=== PATIENT | female | born 1940 | race Caucasian/White ===

== ENCOUNTER 2021-03-12 21:59 | Inpatient (IN) | payer MEDICARE, SELFPAY ==
--- NOTE | 2021-03-12 00:08 | RAD_ITS ---
HISTORY: Trauma, fall EXAMINATION/TECHNIQUE: XR Chest 1 View: Portable supine AP chest x-ray COMPARISON: None FINDINGS: LINES/DEVICES: None. LUNGS: Hazy bilateral airspace opacities without consolidation or vascular congestion. No pneumothorax. MEDIASTINUM AND CARDIOVASCULAR STRUCTURES: Cardiac silhouette not enlarged. BONES AND SOFT TISSUES: No acute bony abnormalities. RAD/Chest 1 View (Portable) IMPRESSION: Hazy bilateral airspace disease of uncertain chronicity, suspicious for pneumonia in the appropriate clinical setting. Recommend two-view chest x-ray follow-up. at 0034 Reported and signed by: Gian Johns MD Electronically Signed: Gian Johns MD at 0:33 EST Tel , Service support ,
[2021-03-12 22:02] VITALS: BP 159/83; PULSE 80; RESP 18; TEMP 36.7; O2SAT 96; BMI 26.2
--- NOTE | 2021-03-12 22:21 | RAD_ITS ---
HISTORY: Trauma, fall, hip pain EXAMINATION/TECHNIQUE: XR Hip Unilateral with Pelvis when performed; 2-3 Views: COMPARISON: None FINDINGS: BONES/JOINTS: Comminuted fracture of the right intertrochanteric femur. Preservation of the hip joint spaces. No sclerotic or destructive changes observed. SOFT TISSUES: No soft tissue swelling or gas. No radiopaque foreign body. RAD/HIP, UNI W/ Pelvis 2-3 Views IMPRESSION: Comminuted intertrochanteric fracture right femur. at 0036 Reported and signed by: Gian Johns MD Electronically Signed: Gian Johns MD at 0:34 EST Tel , Service support ,
--- NOTE | 2021-03-12 22:21 | CT_ITS ---
HISTORY: Trauma, head injury TECHNIQUE: Multiple axial images were obtained of the brain without intravenous contrast. A radiation dose optimization technique was used for this scan. IV Contrast dosage and agent: None. COMPARISON: None FINDINGS: # of images incl. paperwork: [phone] PARANASAL SINUSES AND MASTOID AIR CELLS: Ethmoid and maxillary mucoperiosteal thickening. INTRACRANIAL HEMORRHAGE: None. BRAIN PARENCHYMA: No CT evidence of stroke. No intracranial masses. There is preservation of the orozco/white matter interface. Posterior fossa structures are unremarkable. There is hypoattenuation of the periventricular white matter. Chronic involutional changes are noted. CSF SPACES: Appropriate for age. There is no hydrocephalus. MASS EFFECT: None. CALVARIUM: No acute fracture. CT/Brain/Head without Contrast IMPRESSION: Chronic involutional and white matter changes. No acute intracranial process. Individualized dose optimization techniques were used for this CT. at 0025 Reported and signed by: Gian Johns MD Electronically Signed: Gian Johns MD at 0:24 EST Tel , Service support ,
--- NOTE | 2021-03-12 22:21 | EKG12_ITS ---
Test Reason : DYSRHYTHMIA Blood Pressure : / mmHG Vent. Rate : 085 BPM Atrial Rate : 085 BPM P-R Int : 160 ms QRS Dur : 072 ms QT Int : 360 ms P-R-T Axes : 089 003 048 degrees QTc Int : 428 ms Sinus rhythm with Premature atrial complexes Otherwise normal ECG Confirmed by KATALINA LOPEZ, NORMA ([id number]), editor department LEDY CARRILLO ([id number]) on 03/15/2021 1:21:18 PM Referred By: JERO Confirmed By:NORMA DARDEN MD
--- NOTE | 2021-03-12 22:40 | EDS_ITS ---
HPI History of Present Illness Chief Complaint: Fall Narrative Narrative: Patient is an 80-year-old female who lives with her son and has dementia. This evening around 9 PM she got up to turn off the TV and the light and get ready for bed when she lost her balance and fell. Son states he heard the thud and ran upstairs to her side within 10 to 15 seconds. He states when he arrived she was awake and alert and at her baseline mental status. Patient and son deny any blood thinner use. Patient states she has pain in her right hip and cannot ambulate or bear weight because of this and as her pain was not improving with just time and [id number] medication son brought her in for evaluation. PFSH PFS Home Medications multivitamin 1 tab PO DAILY 03/12/21 [History Last Taken Unknown] Allergy/AdvReac Type Severity Reaction Status Date / Time bee venom protein (honey bee) Allergy Hives Verified 03/12/21 22:07 Penicillins Allergy Hives Verified 03/12/21 22:07 Surgical History (Updated 03/12/21 @ 22:12 by Lala Queen) Hx of cholecystectomy Hx of hysterectomy Social History Smoking Status: Former smoker ROS ROS ED Constitutional Constitutional ED: Denies chills or fever(s) Eyes Eyes: Denies change in vision ENT ENT ED: Denies sore throat Cardiovascular Cardiovascular: Denies chest pain Respiratory/Chest Respiratory/Chest: Denies cough or dyspnea Gastrointestinal Gastrointestinal: Denies abdominal pain, diarrhea, nausea or vomiting Genitourinary Genitourinary ED: Denies dysuria Musculoskeletal Musculoskeletal: Reports other Details: Positive right hip pain ; Denies back pain, myalgias or neck pain Integumentary Denies rash Neurologic Neurologic: Denies headache(s) Hematologic/Lymphatic Hematologic/Lymphatic: Denies easy bleeding or easy bruising EXAM Physical Exam Const Vital Signs: 03/12/21 22:02 03/12/21 22:13 03/13/21 00:30 Temperature 98.1 F Temperature Source Oral Pulse Rate 80 78 Respiratory Rate 18 18 Respiratory Effort Normal Non-Labored Respiratory Depth Normal Respiratory Pattern Normal Blood Pressure 159/83 H 163/75 H Blood Pressure Mean 108 104 Pulse Ox 96 98 Oxygen Delivery Method Room Air Nasal Cannula Oxygen Flow Rate (L/min) 2 Positive well nourished and well developed General Appearance ED: well developed HEENT Reports moist mucous membranes HEENT Narrative: Patient has a small 1 x 2 cm hematoma to the right occipital/parietal portion of the scalp without signs of depressed or basilar skull fracture Eyes PERRL and EOMs intact bilaterally Neck supple Neck Narrative: No bony deformity or step-off of the cervical spine no midline pain with palpation Chest Wall palpation of chest normal Resp normal respiratory effort and clear to auscultation bilaterally Cardio regular rate and regular rhythm Rate: other Other Details: Radial pulses are plus 2 out of 4 bilaterally they are equal and symmetric GI normal to inspection, nondistended, normoactive bowel sounds, non-tender, non- distended and no masses GI Narrative: No voluntary guarding or rigidity no pulsatile mass Auscultation: normoactive bowel sounds Palpation: soft Extremity Extremity Narrative: Pelvis is stable but the right leg is shortened and externally rotated compared to the left. There is soft tissue swelling of the proximal anterior right thigh with pain on palpation over the site concerning for proximal femur or femoral neck fracture. Active and passive range of motion is severely limited secondary to pain. Neuro CN's II-XII intact bilaterally Neuro Narrative: Patient is awake alert at her baseline mental status with no focal neurologic deficits Sensorium / Orientation: alert Psych mental status grossly normal Skin no rashes or lesions noted Skin Narrative: Soft tissue swelling to the right anterior thigh as documented above without ecchymosis MDM MDM MDM Narrative Medical decision making narrative: Patient had a mechanical fall so there is no need for a cardiac or syncope work-up. However her exam is consistent with a femoral neck fracture so a medical screening exam with basic work-up was obtained. Head CT was also added secondary to the signs of head trauma on exam. Head CT revealed no acute intracranial pathology. Patient's Covid test was positive consistent with her leukopenia and chest x-ray showed inflammatory changes consistent with Covid pneumonia. Secondary to this she was started on Decadron. Her urine also showed signs of UTI so it was sent for culture and she was placed on Rocephin. The case was discussed with orthopedic. Initially they recommended transfer to a higher level of care but multiple facilities were contacted and have no beds available for transfer. Therefore orthopedics was contacted once again and with this development we will keep the patient in our facility. Based on her medical comorbidities and the likelihood that she will not do well because of her Covid and unvaccinated status she will be admitted to medicine service. Lab Data Attestation: I reviewed the patient's lab results. Labs: Laboratory Results - last 24 hr 03/12/21 03/12/21 03/12/21 23:20 23:20 23:20 WBC 2.1 L RBC 3.26 L Hgb 9.8 L Hct 30.6 L MCV 93.9 MCH 30.1 MCHC 32.0 RDW Std Deviation 52.1 H RDW Coeff of Jenny 15.2 H Plt Count 89 L MPV 10.9 Immature Gran % (Auto) 1.000 H Neut % (Auto) 51.6 Lymph % (Auto) 29.2 [place] % (Auto) 17.7 H Eos % (Auto) 0.0 Baso % (Auto) 0.5 Absolute Neuts (auto) 1.1 L Absolute Lymphs (auto) 0.61 L Nucleated RBC % 0 Platelet Estimate MOD DEC PT 14.7 INR 1.2 APTT 44.6 H Sodium 137 Potassium 3.9 Chloride 108 H Carbon Dioxide 24.0 Anion Gap 5 BUN 30 H Creatinine 1.54 H Estim Creat Clear Calc 26.37 Est GFR (MDRD) Af Amer 41 L Est GFR (MDRD) Non-Af 34 L BUN/Creatinine Ratio 19.5 Glucose 123 H Calcium 7.7 L Urine Color Urine Clarity Urine pH Ur Specific [place] Urine Protein Urine Glucose (UA) Urine Ketones Urine Occult Blood Urine Nitrite Urine Bilirubin Urine Urobilinogen Ur Leukocyte Esterase Urine RBC Urine WBC Ur Squamous Epith Cells Ur Renal Epithelial Cell Urine Bacteria Coarse Granular Casts Urine Mucus 03/12/21 23:20 WBC RBC Hgb Hct MCV MCH MCHC RDW Std Deviation RDW Coeff of Jenny Plt Count MPV Immature Gran % (Auto) Neut % (Auto) Lymph % (Auto) [place] % (Auto) Eos % (Auto) Baso % (Auto) Absolute Neuts (auto) Absolute Lymphs (auto) Nucleated RBC % Platelet Estimate PT INR APTT Sodium Potassium Chloride Carbon Dioxide Anion Gap BUN Creatinine Estim Creat Clear Calc Est GFR (MDRD) Af Amer Est GFR (MDRD) Non-Af BUN/Creatinine Ratio Glucose Calcium Urine Color Yellow Urine Clarity Sl. Cloudy Urine pH 6.0 Ur Specific [place] 1.020 Urine Protein 100 H Urine Glucose (UA) Normal Urine Ketones Negative Urine Occult Blood 250 H Urine Nitrite Positive H Urine Bilirubin Negative Urine Urobilinogen Normal Ur Leukocyte Esterase 500 H Urine RBC 5-10 SEEN Urine WBC >100 SEEN Ur Squamous Epith Cells 0-5 SEEN Ur Renal Epithelial Cell 0-5 SEEN Urine Bacteria 4+ Coarse Granular Casts 5-10 SEEN Urine Mucus 0 SEEN Radiography Diagnostic Testing: Clinical Impression(s) from Imaging Studies Chest X-Ray 03/12/21 00:08 IMPRESSION: Hazy bilateral airspace disease of uncertain chronicity, suspicious for pneumonia in the appropriate clinical setting. Recommend two-view chest x-ray follow-up. at 0034 Reported and signed by: Gian Johns MD Electronically Signed: Gian Johns MD at 0:33 EST Tel , Service support , Brain CT 03/12/21 22:21 IMPRESSION: Chronic involutional and white matter changes. No acute intracranial process. Individualized dose optimization techniques were used for this CT. at 0025 Reported and signed by: Gian Johns MD Electronically Signed: Gian Johns MD at 0:24 EST Tel , Service support , Hip/Pelvis X-Ray 03/12/21 22:21 IMPRESSION: Comminuted intertrochanteric fracture right femur. at 0036 Reported and signed by: Gian Johns MD Electronically Signed: Gian Johns MD at 0:34 EST Tel , Service support , Discharge Plan Dx/Rx/DC Orders Clinical Impression: Closed intertrochanteric fracture of femur, Pneumonia due to 2019 novel coronavirus, Urinary tract infection Disposition Disposition: Acute Care [facility]
[2021-03-12] MEDS: 0.9% Normal Saline 1,000 ML 125 ML IV (22:49)
[2021-03-12] MEDS: Ondansetron 4 MG/2 ML Vial IV ×2 (22:50→23:55)
[2021-03-12] MEDS: Morphine 4 MG/ML Syringe IV (22:51)
[2021-03-12 23:27] LABS: Mucous, Urine 0 SEEN /hpf (<or=2+)
[2021-03-12 23:30] LABS: Absolute Lymphocyte Count 0.61 X10^3/uL (0.83-4.51); Absolute Neutrophil Count 1.1 X10^3/uL (2.0-7.7); Basophil# 0.01 X10^3/uL; Basophil% 0.5 % (0-1); Hematocrit 30.6 % (37-47); Hemoglobin 9.8 g/dL (12.0-15.0); Lymphocyte # 0.61 X10^3/ul (0.83-4.51); Lymphocyte % 29.2 % (19-41); Mean Corpuscular Hgb 30.1 pg (27.0-32.0); Mean Corpuscular Volume 93.9 fL (81-99); Mean Platelet Vol. 10.9 fl (6.2-12.0); Monocyte# 0.37 X10^3/uL; Monocyte% 17.7 % (0-10); NRBC Flagged by Analyzer 0 % (0-5); Neutrophil # 1.08 X10^3/uL (2.7-7.7); Neutrophil % 51.6 % (47-70); POSITIVE COUNT YES; Platelet Count 89 K/mm3 (150-450); RBC Distribution Width CV 15.2 % (11.6-14.6); RBC Distribution Width SD 52.1 fl (35.1-43.9); Red Blood Count 3.26 M/mm3 (4.2-5.4); White Blood Count 2.1 K/mm3 (4.4-11.0)
[2021-03-12 23:31] LABS: Color, Urine Yellow (Yellow); Glucose, Dipstick Normal (Normal); Ketone-Dipstick Negative (Negative); Leukocyte Esterase-Dipstick 500 /ul (Negative); Nitrite-Dipstick Positive (Negative); Occult Blood-Urine 250 /ul (Negative); Protein-Dipstick 100 mg/dl (Negative); Urine Bilirubin Dipstick Negative (Negative); Urine Clarity Sl. Cloudy (Clear); Urine Urobilinogen Normal (Normal)
[2021-03-12 23:32] LABS: Differential Indicated SCAN CRITERIA MET
[2021-03-12 23:52] LABS: Anion Gap 5 (5-15); BUN 30 mg/dL (7-18); BUN/Creat Ratio 19.5 RATIO (10-20); Calcium,Total 7.7 mg/dL (8.5-10.1); Chloride 108 mmol/L (98-107); Creatinine, Serum 1.54 mg/dL (0.55-1.02); EST Glomerular Filtration Rate 34 mL/min (>60); Est Glom Filt Rate - Afr Amer 41 mL/min (>60); Estimated Creatinine Clearance 26.37 ml/min; Glucose 123 mg/dL (74-106); Potassium 3.9 mmol/L (3.5-5.1); Sodium Level 137 mmol/L (136-145)
[2021-03-12] MEDS: fentaNYL 100 MCG/2 ML Ampul 25 MCG IV (23:58)
[2021-03-13] VITALS (12 sets, daily range): BP systolic 111–163; BP diastolic 51–87; PULSE 54–83; RESP 12–18; TEMP 35.8–37; O2SAT 96–100; BMI 24.7
[2021-03-13 00:12] LABS: Bacteria 4+ /hpf (None Seen)
[2021-03-13 00:13] LABS: Red Blood Cells-Urine 5-10 SEEN /hpf (0-5); Renal Epithelial Cells 0-5 SEEN /hpf (0-5); Squamous Epithelial Cells - UA 0-5 SEEN /hpf (5-10); White Blood Cells >100 SEEN /hpf (0-5)
[2021-03-13 00:14] LABS: Coarse Granular Cast 5-10 SEEN /lpf (0-5 /lpf)
[2021-03-13 00:22] LABS: International Normalized Ratio 1.2; Prothrombin Time (Protime)PT. 14.7 SECONDS (11.7-14.9)
[2021-03-13 00:23] LABS: Partial Thromboplast Time 44.6 Seconds (24.1-36.2)
[2021-03-13 00:31] LABS: Platelet Estimate MOD DEC (ADEQ)
[2021-03-13] MEDS: dexAMETHasone 10 MG/ML Vial IV (00:38)
[2021-03-13] MEDS: Ceftriaxone 1 GM/50 ML BAG IV ×2 (00:38→20:50)
--- NOTE | 2021-03-13 01:39 | ED.RN ---
CALLED AROUND TO HOSPITALS ABOUT THIS PATIENT FOR A TRANSFER, [facility], [facility], [facility] AND [facility] ALL SAID NO DUE TO NO BEDS.
--- NOTE | 2021-03-13 01:50 | PCM.HP.STD ---
HPI - General General Date of Admission: 03/13/21 Date of Service: 03/13/21 Chief Complaint: COVID sxs, Fall w/ R hip pain. HPI Narrative The patient is an 80 y/o F w/ PMHx: Former Tobacco use, Dementia unclear type with unclear behavioral disturbance history who presents to the [facility] ED on 03/13/21 with history of unfortunate mechanical fall onto her right hip with significant discomfort following, shortening and abnormal rotation with no specific loss of consciousness prompting ED evaluation. Patient lives with her son and per discussion was getting up approximately 9 PM to turn off the TV and the light to get ready for bed when she lost her balance and fell at that time. Patient reported that her mental status was stable and unchanged from her baseline with notable underlying significant dementia. Patient has not been vaccinated against COVID. Patient son did state that unfortunately his son recently tested positive for Covid and that both him and his mother had Covid testing on day of ED presentation but have yet to have these results and that they both been fatigued with upper respiratory type symptoms over the last 1 to 2 days. Work-up in the ED included T 98.1, heart rate 80, BP 159/83, respiratory rate 18, 96% on room air; however, following morphine dropped to 88% on RA-->improved with NC but upon hospitalist evaluation was 91% on room air and this was a decent timeline out from narcotic therapies, CBC with WBC 2.1, hemoglobin 9.8, platelet 89 with increased immature granulocytes although absolute neutrophils 1.1 with concurrent lymphopenia, BMP with chloride 108, BUN/creatinine 30/1.54, glucose 123, coags with PTT 44.6 otherwise unremarkable, urinalysis with specific gravity elevation 1.020, occult blood 250, positive nitrite, leukocyte esterase 500, urine RBC 5-10, urine WBCs greater than 100 with 4+ urine bacteria, urine culture pending per ED, rapid Covid antigen positive, plain film of the hip and pelvis with R comminuted intertrochanteric fracture, chest x-ray w/ hazy bilateral airspace disease of uncertain chronicity, suspicious for pneumonia in the appropriate clinical setting, CT brain with chronic involutional and white matter changes with no acute intracranial findings. In the ED patient ministered normal saline, Rocephin, fentanyl, morphine and Zofran therapy. Mathew catheter placed in the ED. [facility] Medical History (Updated 03/13/21 @ 01:[address] Mary Carmen Bell MD) Anemia CKD (chronic kidney disease) Former tobacco use Severe dementia Home Medications multivitamin 1 tab PO DAILY 03/12/21 [History Last Taken Unknown] Allergy/AdvReac Type Severity Reaction Status Date / Time bee venom protein (honey bee) Allergy Hives Verified 03/12/21 22:07 Penicillins Allergy Hives Verified 03/12/21 22:07 unable to obtain (Unknown maternal and paternal family history per discussion with patient son, all passed when he was young.) Surgical History (Updated 03/13/21 @ 01:[address] Mary Carmen Bell MD) Hx of cholecystectomy Hx of hysterectomy S/P bilateral foot surgery Social History (Updated 03/13/21 @ 01:[address] Mary Carmen Bell MD) household members: other details: Patient moved in with her son ~ 15 years prior following her . Smoking Status: Former smoker how long ago did patient quit smoking: Smoked x 30 years, quit ~ 15 years ago. alcohol intake: never substance use type: does not use ROS ROS Narrative Admission Review of Systems: ROS given per family: CONSTITUTIONAL: No weight loss, fever, chills, + weakness or fatigue. HEENT: + Rhinorrhea, congestion, headache. Eyes: No visual loss, blurred vision, double vision or yellow sclerae. Ears, Nose, Throat: No hearing loss, sneezing. SKIN: No rash or itching, lesions, wounds. CARDIOVASCULAR: No chest pain, chest pressure or chest discomfort, palpitations, edema, orthopnea, syncopal events. RESPIRATORY: + Mild cough. No shortness of breath, marked sputum, wheezing, hemoptysis. GASTROINTESTINAL: + anorexia, nausea, vomiting, No diarrhea, No abdominal pain, melena, BRBPR. GENITOURINARY: No dysuria, frequency, urgency or retention. NEUROLOGICAL: + Fall, No specifically reported dizziness, headache, syncope, paralysis, ataxia, numbness or tingling in the extremities, focal weakness, change in bowel or bladder control, seizure. MUSCULOSKELETAL: + muscle, back pain, joint pain or stiffness. HEMATOLOGIC: + anemia, bleeding or bruising. LYMPHATICS: No enlarged nodes. No history of splenectomy. PSYCHIATRIC: No history of depression or anxiety. ENDOCRINOLOGIC: No reports of sweating, cold or heat intolerance. No polyuria or polydipsia. ALLERGIES: No history of asthma, hives, eczema or rhinitis. Vital Signs Vital Signs Vital Signs: 03/12/21 22:02 03/12/21 22:13 03/13/21 00:30 Temperature 98.1 F Temperature Source Oral Pulse Rate 80 78 Respiratory Rate 18 18 Respiratory Effort Normal Non-Labored Respiratory Depth Normal Respiratory Pattern Normal Blood Pressure 159/83 H 163/75 H Blood Pressure Mean 108 104 Pulse Ox 96 98 Oxygen Delivery Method Room Air Nasal Cannula Oxygen Flow Rate (L/min) 2 Weight Weight: 162 lb 11.218 oz Body Mass Index (BMI) 26.2 Physical Exam Narrative Physical Examination: General: Awake, alert, oriented to self and recent events including recent fall however significant severe underlying dementia, remains cooperative, seated upright in the ED bed with unfortunate recent bouts of nausea and vomiting, fatigued appearing, no acute distress. Skin: Normal color, normal turgor, no icterus, no cyanosis except notable right occipital/parietal scalp hematoma. HEENT: AT/NC, EOMI, PERRLA, moderately dry MM, no carotid bruits or JVD noted. Lungs: Diminished, greater bases, no evidence of any respiratory distress, no rales, ronchi or wheezing. Heart: Regular rate with regular rhythm; no gallop, rub audible. Abdomen: Soft, NTTP, no obvious distention, distant bowel sounds, no obvious HSM. Extremities: No cyanosis, no clubbing, status post mechanical fall with right lower extremity shortened and externally rotated with soft tissue swelling. Neurological: Patient awake, alert, oriented as noted, cognitive function appears baseline intact per family report with significant severe underlying dementia, pleasant; cranial nerves II-XII grossly normal, moving all 4 extremities except specifically limited movement right lower extremity given fall with hip fracture, strength accordingly severely global decrease secondary to acute presentation. Psychiatric: Affect appears fatigued, uncomfortable, no acute evidence of depressive or anxiety feelings. Results Lab / Micro Data Result Diagrams: 03/12/21 23:20 03/12/21 23:20 Labs: Laboratory Results - last 24 hr 03/12/21 23:20: WBC 2.1 L, RBC 3.26 L, Hgb 9.8 L, Hct 30.6 L, MCV 93.9, MCH 30.1, MCHC 32.0, RDW Std Deviation 52.1 H, RDW Coeff of Jenny 15.2 H, Plt Count 89 L, MPV 10.9, Immature Gran % (Auto) 1.000 H, Neut % (Auto) 51.6, Lymph % (Auto) 29.2, [place] % (Auto) 17.7 H, Eos % (Auto) 0.0, Baso % (Auto) 0.5, Absolute Neuts (auto) 1.1 L, Absolute Lymphs (auto) 0.61 L, Nucleated RBC % 0, Platelet Estimate MOD 03/12/21 23:20: PT 14.7, INR 1.2, APTT 44.6 H 03/12/21 23:20: Sodium 137, Potassium 3.9, Chloride 108 H, Carbon Dioxide 24.0, Anion Gap 5, BUN 30 H, Creatinine 1.54 H, Estim Creat Clear Calc 26.37, Est GFR (MDRD) Af Amer 41 L, Est GFR (MDRD) Non-Af 34 L, BUN/Creatinine Ratio 19.5, Glucose 123 H, Calcium 7.7 L 03/12/21 23:20: Urine Color Yellow, Urine Clarity Sl. Cloudy, Urine pH 6.0, Ur Specific [place] 1.020, Urine Protein 100 H, Urine Glucose (UA) Normal, Urine Ketones Negative, Urine Occult Blood 250 H, Urine Nitrite Positive H, Urine Bilirubin Negative, Urine Urobilinogen Normal, Ur Leukocyte Esterase 500 H, Urine RBC 5-10 SEEN, Urine WBC >100 SEEN, Ur Squamous Epith Cells 0-5 SEEN, Ur Renal Epithelial Cell 0-5 SEEN, Urine Bacteria 4+, Coarse Granular Casts 5-10 SEEN, Urine Mucus 0 SEEN Micro: Microbiology 03/12/21 22:40 Nasal Secretion SARS-CoV-2 Antigen (Rapid) - Final SARS-CoV-2 (COVID 19) Radiology Impression Chest X-Ray 03/12/21 00:08 IMPRESSION: Hazy bilateral airspace disease of uncertain chronicity, suspicious for pneumonia in the appropriate clinical setting. Recommend two-view chest x-ray follow-up. at 0034 Reported and signed by: Gian Johns MD Electronically Signed: Gian Johns MD at 0:33 EST Tel , Service support , Brain CT 03/12/21 22:21 IMPRESSION: Chronic involutional and white matter changes. No acute intracranial process. Individualized dose optimization techniques were used for this CT. at 0025 Reported and signed by: Gian Johns MD Electronically Signed: Gian Johns MD at 0:24 EST Tel , Service support , Hip/Pelvis X-Ray 03/12/21 22:21 IMPRESSION: Comminuted intertrochanteric fracture right femur. at 0036 Reported and signed by: Gian Johns MD Electronically Signed: Gian Johns MD at 0:34 EST Tel , Service support , Assessment & Plan Assessment/Plan (1) Closed intertrochanteric fracture of femur: QUALIFIERS: Encounter type: initial encounter Laterality: right Fracture alignment: nondisplaced Qualified Code(s): S72.144A - Nondisplaced intertrochanteric fracture of right femur, initial encounter for closed fracture (2) Pneumonia due to 2019 novel coronavirus: (3) Urinary tract infection: QUALIFIERS: Urinary tract infection type: acute cystitis Hematuria presence: without hematuria Qualified Code(s): N30.00 - Acute cystitis without hematuria PLAN: The patient is an 80 y/o F w/ PMHx: Former Tobacco use, Dementia unclear type with unclear behavioral disturbance history who presents to the [facility] ED on 03/13/21 with history of unfortunate mechanical fall onto her right hip with significant discomfort following, shortening and abnormal rotation with no specific loss of consciousness prompting ED evaluation. 1. Acute Bilateral Pneumonia secondary to Acute Viral Syndrome, COVID-19 w/ Acute Hypoxia: Will admit to the medical surgical floor, maintain on COVID precautions, will maintain on oxygen with wean as tolerated to room air, PRN albuterol, HOB, IS parameters w/ pending sputum cultures, respiratory viral panel and urine antigens, will obtain D-dimer, procalcitonin, CRP, CPK, Ferritin, LDH, trop and BNP, continue supportive care including q 2 hour turning including prone given no prone bed availability and judicious hydration, closely monitor for worsening status for ARDS and multiorgan failure, given hypoxia in the ED although could certainly be pain medication associated will continue IV decadron, given CrCl will hold remdesivir usage. Certainly does complicate presentation with hip fracture concurrently. 2. Acute Urinary Tract Infection: UA upon ED evaluation remarkable, pending UCx, continue judicious IVFs given acute presentation as noted #1, monitor I/Os, continue IV Rocephin w/ transition as able pending sensitivities and speciation. 3. General debility, R hip pain s/p mechanical fall w/ R intertrochanteric hip fracture: Orthopedic surgery consulted from ED. Will maintain NPO after midnight pending their evaluation but noted surgery may be delayed until Monday, continue gentle IVFs especially given #1, obtain TSH, Mag level, ICa, continue treatment of urinary tract potential infection as noted, mathew placement, monitor I/Os, frequent positioning, fall precautions, pain, anti-emetic regimen. PT/OT/CM involvement. Per NSQIP patient risk is below average; however, this is falsely lower has she likely has significant underlying comorbidities that have not been treated including evident pancytopenia with suspected chronic anemia, possibly underlying chronic kidney disease and possibly untreated high blood pressure however it is unclear if this is associated with acute presentation with pain. Patient is extremely high risk given her Covid positive status with BL PNA and hypoxia in unvaccinated state which was discussed at length with family the likelihood of a poor outcome including her likely to which they understand and are amenable to her proceeding to the OR primarily for pain control with suspected likely pinning. 4. Elevated BP without hypertensive diagnosis: Patient BP upon ED presentation elevated, likely secondary to acute presentation #1, #2 neck, #3 however be cautious we will continue monitor and in the interim IV as needed hydralazine. 5. Acute kidney injury versus CKD stage III, unclear subtype: Admission BUN/Cr 30/1.54, unclear baseline, potentially chronic kidney disease versus mild renal insufficiency versus acute kidney injury, as noted above will judiciously hydrate given presentation, avoid nephrotoxic regimen and repeat CMP in AM. 6. Pancytopenia, unclear if chronic, unclear if acute on chronic component: Potentially related with acute presentation #1 COVID-19, admission CBC with WC 2.1, hemoglobin 9.8 with MCV 93.9, platelet 89, will need to cautiously use chemoprophylaxis following surgery evaluation given these findings, no comparison, will obtain iron panel, ferritin, vitamin B12 and folic acid. 7. Dementia, unclear type with unclear behavioral disturbance history: Complicates presentation especially given the myriad of acute presentations, maintain on fall precautions, therapies once intervention for hip performed will need to be consulted as well as case management for discharge planning as would require likely skilled placement. 8. Former tobacco use: Encourage continued tobacco cessation. 9. DVT prophylaxis: SCDs, hold on any chemoprophylaxis given pending surgery evaluation for hip fracture. 10. CODE status: Discussed patient and her situation at length with patient son. She does not have any healthcare power of tax associate attorney formally set up or living will. He is her only living child. Discussed CODE status at length including difference between FULL code, DNR-CCA and DNR-CC status. Following discussions about the differences in these status, requested that patient proceed to the OR for pain control primarily and understands that she will likely pass secondary to complications with Covid given her unvaccinated status and significant serious presentation, DNR-CCA with intubation for surgery. Advanced Care Planning Face to Face Time: 16 minutes. Charges/Coding Visit Charges Inpatient E&M: 30718 Init Hosp L3 Procedures Hospitalists Procedures: 72995 Advncd Care Plan 30 Min
[2021-03-13] MEDS: proMETHazine 25 MG/ML Syringe 6.25 MG IV (02:59)
[2021-03-13 03:06] LABS: AST(SGOT) 45 U/L (15-37); Alanine Aminotransfer ALT/SGPT 27 U/L (13-56); Albumin, Serum 2.8 g/dL (3.2-5.0); Alkaline Phosphatase 61 U/L (45-117); Bilirubin, Direct 0.14 mg/dL (0.00-0.30); Ferritin 933 ng/mL (8-252); Globulin 3.2 g/dL (2.2-4.2); LDH 308 U/L (84-246); Magnesium 1.8 mg/dL (1.6-2.6); Troponin-I HS 479 pg/mL (3.0-54.0)
--- NOTE | 2021-03-13 03:10 | PCS.PANDOC ---
PANDEMIC DOCUMENTATION INITIATED: Date: 12/07/2020 Time: 190
[2021-03-13 03:26] LABS: D-Dimer Quantitative (DVT/PE) > 20.00 FEU/ug/m (0.27-0.49)
[2021-03-13] MEDS: HEPARIN/D5w 25,000 UNITS 25,000 UNITS/250 ML IV.SOLN. 11 UNITS IV (03:48)
[2021-03-13] MEDS: Heparin Injection (Vial) 5,000 UNIT/ML VIAL 5000 UNIT IV (03:49)
[2021-03-13] MEDS: 0.9% Saline Lock 10 ML Syringe IV ×2 (04:08→20:51)
[2021-03-13] MEDS: 0.9% Normal Saline 1,000 ML 100 ML IV (04:09)
[2021-03-13] MEDS: Aspirin 325 MG Tablet PO (04:10)
[2021-03-13 06:13] LABS: Absolute Lymphocyte Count 0.47 X10^3/uL (0.83-4.51); Absolute Neutrophil Count 1.1 X10^3/uL (2.0-7.7); Hematocrit 28.5 % (37-47); Hemoglobin 9.5 g/dL (12.0-15.0); Lymphocyte # 0.47 X10^3/ul (0.83-4.51); Lymphocyte % 26.3 % (19-41); Mean Corp Hgb Conc 33.3 g/dL (32-36); Mean Corpuscular Hgb 31.1 pg (27.0-32.0); Mean Corpuscular Volume 93.4 fL (81-99); Mean Platelet Vol. 11.1 fl (6.2-12.0); Monocyte# 0.21 X10^3/uL; Monocyte% 11.7 % (0-10); NRBC Flagged by Analyzer 0 % (0-5); Neutrophil # 1.09 X10^3/uL (2.7-7.7); Neutrophil % 60.9 % (47-70); POSITIVE COUNT YES; POSITIVE DIFFERENTIAL YES; POSITIVE MORPHOLOGY YES; Platelet Count 87 K/mm3 (150-450); RBC Distribution Width CV 15.4 % (11.6-14.6); RBC Distribution Width SD 52.5 fl (35.1-43.9); Red Blood Count 3.05 M/mm3 (4.2-5.4); White Blood Count 1.8 K/mm3 (4.4-11.0)
[2021-03-13 06:30] LABS: Differential Indicated SCAN CRITERIA MET
[2021-03-13 06:35] LABS: Burr Cells RARE; Ovalocyte 1+
[2021-03-13 06:50] LABS: ALB/GLOB Ratio 0.7 RATIO (0.9-2.4); AST(SGOT) 53 U/L (15-37); Alanine Aminotransfer ALT/SGPT 27 U/L (13-56); Albumin, Serum 2.5 g/dL (3.2-5.0); Alkaline Phosphatase 62 U/L (45-117); Anion Gap 7 (5-15); BUN 29 mg/dL (7-18); BUN/Creat Ratio 20.6 RATIO (10-20); Calcium,Total 7.4 mg/dL (8.5-10.1); Chloride 106 mmol/L (98-107); Creatinine, Serum 1.41 mg/dL (0.55-1.02); EST Glomerular Filtration Rate 38 mL/min (>60); Est Glom Filt Rate - Afr Amer 46 mL/min (>60); Globulin 3.5 g/dL (2.2-4.2); Glucose 162 mg/dL (74-106); Potassium 4.6 mmol/L (3.5-5.1); Sodium Level 135 mmol/L (136-145); T4 Free Direct 1.45 ng/dL (0.76-1.46); Thyroid Stim Hormone (TSH) 3.02 uIU/mL (0.358-3.74); Troponin-I HS 483 pg/mL (3.0-54.0)
--- NOTE | 2021-03-13 07:00 | VDLE_ITS ---
Reason For Study: ELEVATED D DIMER RIGHT LEFT GSV is normal. GSV is normal. CFV is compressible, spontaneous, phasic, CFV is compressible, spontaneous, phasic, competent and demonstrates normal competent, and demonstrates normal augmentation. augmentation. FV is compressible, spontaneous, phasic, FV is compressible, spontaneous, phasic, competent and demonstrates normal competent and demonstrates normal augmentation. augmentation. POP V is compressible, spontaneous, phasic, POP V is compressible, spontaneous, phasic, competent and demonstrates normal competent and demonstrates normal augmentation. augmentation. T/P Trunk is compressible. T/P Trunk is compressible. PTV is compressible. PTV is compressible. RT PerV is compressible. LT PerV is compressible. Procedure Exam performed portable in patient room. The exam was abbreviated due to the COVID 19 protocol. The study was technically difficult. Limited mobility of pt due to fractured rt hip. A preliminary report was called and/or faxed to [facility]. VL/Venous Duplex US - Alex Extrem Interpretation Summary Deep veins of the lower extremities are bilaterally patent and compressible seg mentally. There is no evidence of deep vein thrombosis on either side. Valvular competence appears in tact within the proximal deep venous systems bilaterally. The great saphenous veins appear bila terally patent and compressible segmentally. Ordering Physician: Mary Carmen Bell Performed By: Dorie Flores, SHAWNACS, RVT
--- NOTE | 2021-03-13 08:17 | CONS.ORTHO ---
HPI Consult Data Date of Consult: 03/13/21 HPI Narrative HPI Narrative: JIMBO HILL, is a 80 F who presents with right hip pain after a fall at home. She has dementia and is therefore a poor historian. She was admitted to the hospital last night with an intertrochanteric fracture of her right hip. She is positive for Covid, has infiltrates suggestive of pneumonia n her [facility] Medical History Anemia CKD (chronic kidney disease) Former tobacco use Severe dementia Home Medications multivitamin 1 tab PO DAILY 03/12/21 [History Last Taken Unknown] Allergy/AdvReac Type Severity Reaction Status Date / Time bee venom protein (honey bee) Allergy Hives Verified 03/13/21 03:30 Penicillins Allergy Hives Verified 03/13/21 03:30 Family History unable to obtain Surgical History Hx of cholecystectomy Hx of hysterectomy S/P bilateral foot surgery Social History household members: other details: Patient moved in with her son ~ 15 years prior following her . Smoking Status: Former smoker how long ago did patient quit smoking: Smoked x 30 years, quit ~ 15 years ago. alcohol intake: never substance use type: does not use Vital Signs Vital Signs Vital Signs: 03/12/21 22:02 03/12/21 22:13 03/13/21 00:30 Temperature 98.1 F Temperature Source Oral Pulse Rate 80 78 Respiratory Rate 18 18 Respiratory Effort Normal Non-Labored Respiratory Depth Normal Respiratory Pattern Normal Blood Pressure 159/83 H 163/75 H Blood Pressure Mean 108 104 Blood Pressure Source Blood Pressure Position Blood Pressure Location Pulse Ox 96 98 Oxygen Delivery Method Room Air Nasal Cannula Oxygen Flow Rate (L/min) 2 03/13/21 02:17 03/13/21 03:26 03/13/21 03:29 Temperature 98.3 F 96.5 F L Temperature Source Temporal Oral Pulse Rate 68 83 Respiratory Rate 16 18 Respiratory Effort Normal Non-Labored Respiratory Depth Normal Respiratory Pattern Normal Blood Pressure 111/60 159/87 H Blood Pressure Mean 77 111 Blood Pressure Source Monitor Blood Pressure Position Semi-Fowlers Blood Pressure Location Right Arm Pulse Ox 96 100 Oxygen Delivery Method Nasal Cannula Nasal Cannula Nasal Cannula Oxygen Flow Rate (L/min) 2 2 2 03/13/21 03:32 03/13/21 05:01 03/13/21 07:16 Temperature Temperature Source Pulse Rate 74 54 L Respiratory Rate 18 Respiratory Effort Normal Respiratory Depth Normal Respiratory Pattern Normal Blood Pressure Blood Pressure Mean Blood Pressure Source Blood Pressure Position Blood Pressure Location Pulse Ox 99 Oxygen Delivery Method Nasal Cannula Oxygen Flow Rate (L/min) 2 Weight Weight: 153 lb 10.595 oz Body Mass Index (BMI) 24.7 Physical Exam Const General Appearance: uncooperative and frail Orientation / Consciousness: confused Exam Limitations: altered mental status Extremity no clubbing, cyanosis or edema and no calf tenderness Right Lower Extremity: hip joint neurovascular exam (intact) and special tests (Right lower extremity shortened and externally rotated. ROM not tested due to know fracture) Lab / Micro Data Result Diagrams: 03/13/21 05:40 03/13/21 05:40 Labs: Laboratory Results - last 24 hr 03/12/21 23:20: WBC 2.1 L, RBC 3.26 L, Hgb 9.8 L, Hct 30.6 L, MCV 93.9, MCH 30.1, MCHC 32.0, RDW Std Deviation 52.1 H, RDW Coeff of Jenny 15.2 H, Plt Count 89 L, MPV 10.9, Immature Gran % (Auto) 1.000 H, Neut % (Auto) 51.6, Lymph % (Auto) 29.2, [place] % (Auto) 17.7 H, Eos % (Auto) 0.0, Baso % (Auto) 0.5, Absolute Neuts (auto) 1.1 L, Absolute Lymphs (auto) 0.61 L, Nucleated RBC % 0, Platelet Estimate MOD DEC 03/12/21 23:20: PT 14.7, INR 1.2, APTT 44.6 H 03/12/21 23:20: Sodium 137, Potassium 3.9, Chloride 108 H, Carbon Dioxide 24.0, Anion Gap 5, BUN 30 H, Creatinine 1.54 H, Estim Creat Clear Calc 26.37, Est GFR (MDRD) Af Amer 41 L, Est GFR (MDRD) Non-Af 34 L, BUN/Creatinine Ratio 19.5, Glucose 123 H, Calcium 7.7 L 03/12/21 23:20: Urine Color Yellow, Urine Clarity Sl. Cloudy, Urine pH 6.0, Ur Specific [place] 1.020, Urine Protein 100 H, Urine Glucose (UA) Normal, Urine Ketones Negative, Urine Occult Blood 250 H, Urine Nitrite Positive H, Urine Bilirubin Negative, Urine Urobilinogen Normal, Ur Leukocyte Esterase 500 H, Urine RBC 5-10 SEEN, Urine WBC >100 SEEN, Ur Squamous Epith Cells 0-5 SEEN, Ur Renal Epithelial Cell 0-5 SEEN, Urine Bacteria 4+, Coarse Granular Casts 5-10 SEEN, Urine Mucus 0 SEEN 03/12/21 23:20: Magnesium 1.8, Ferritin 933 H, Total Bilirubin 0.50, Direct Bilirubin 0.14, AST 45 H, ALT 27, Alkaline Phosphatase 61, Lactate Dehydrogenase 308 H, Troponin I High Sens 479 H*, C-React Prot Ext Range 22.90 H, Total Protein 6.0 L, Albumin 2.8 L, Globulin 3.2 03/12/21 23:20: B-Natriuretic Peptide 297.0 H 03/12/21 23:20: D-Dimer Quant (PE/DVT) > 20.00 H* 03/13/21 04:05: Troponin I High Sens Cancelled 03/13/21 05:40: Procalcitonin 0.40 H 03/13/21 05:40: WBC 1.8 L, RBC 3.05 L, Hgb 9.5 L, Hct 28.5 L, MCV 93.4, MCH 31.1, MCHC 33.3, RDW Std Deviation 52.5 H, RDW Coeff of Jenny 15.4 H, Plt Count 87 L, MPV 11.1, Immature Gran % (Auto) 1.100 H, Neut % (Auto) 60.9, Lymph % (Auto) 26.3, [place] % (Auto) 11.7 H, Eos % (Auto) 0.0, Baso % (Auto) 0.0, Absolute Neuts (auto) 1.1 L, Absolute Lymphs (auto) 0.47 L, Nucleated RBC % 0, Diff Path Review May foll, Ovalocytes 1+, Olivier Cells RARE 03/13/21 05:40: Sodium 135 L, Potassium 4.6, Chloride 106, Carbon Dioxide 22.0, Anion Gap 7, BUN 29 H, Creatinine 1.41 H, Estim Creat Clear Calc 28.80, Est GFR (MDRD) Af Amer 46 L, Est GFR (MDRD) Non-Af 38 L, BUN/Creatinine Ratio 20.6 H, Glucose 162 H, Calcium 7.4 L, Total Bilirubin 0.50, AST 53 H, ALT 27, Alkaline Phosphatase 62, Troponin I High Sens 483 H*, Total Protein 6.0 L, Albumin 2.5 L, Globulin 3.5, Albumin/Globulin Ratio 0.7 L, TSH 3.02, Free T4 1.45 Micro: Microbiology 03/12/21 22:40 Nasal Secretion SARS-CoV-2 Antigen (Rapid) - Final SARS-CoV-2 (COVID 19) Radiology Impression Chest X-Ray 03/12/21 00:08 IMPRESSION: Hazy bilateral airspace disease of uncertain chronicity, suspicious for pneumonia in the appropriate clinical setting. Recommend two-view chest x-ray follow-up. at 0034 Reported and signed by: Gian Johns MD Electronically Signed: Gian Johns MD at 0:33 EST Tel , Service support , Brain CT 03/12/21 22:21 IMPRESSION: Chronic involutional and white matter changes. No acute intracranial process. Individualized dose optimization techniques were used for this CT. at 0025 Reported and signed by: Gian Johns MD Electronically Signed: Gian Johns MD at 0:24 EST Tel , Service support , Hip/Pelvis X-Ray 03/12/21 22:21 IMPRESSION: Comminuted intertrochanteric fracture right femur. at 0036 Reported and signed by: Gian Johns MD Electronically Signed: Gian Johns MD at 0:34 EST Tel , Service support , Assessment & Plan Assessment/Plan (1) Closed intertrochanteric fracture of femur: QUALIFIERS: Encounter type: initial encounter Fracture alignment: nondisplaced Laterality: right Qualified Code(s): S72.144A - Nondisplaced intertrochanteric fracture of right femur, initial encounter for closed fracture PLAN: I spoke with both the hospitalist and the anesthesiologist. Further medical care and treatment will be needed to optimize the patient before hip fixation surgery hopefully Monday.
--- NOTE | 2021-03-13 08:33 | ECHOD_ITS ---
Reason For Study: ELEVATED TROPONIN Procedure This was a 2D Doppler, Color Flow transthoracic echocardiogram. Limited views were obtained. The exam was abbreviated due to the COVID 19 protocol. Exam performed portable in patient room. Left Ventricle Normal left ventricle. The estimated ejection fraction is 40-45 %. Atria The left atrium is mildly enlarged. Normal right atrium. Mitral Valve There is mild mitral annular calcification. Mild-Moderate (1-2+) mitral valve insufficiency. Tricuspid Valve Normal tricuspid valve. Mild to moderate (1-2+) tricuspid valve insufficiency. Aortic Valve Mild diffuse aortic valve calcification. Pulmonic Valve The pulmonic valve is not well visualized. Great Vessels Normal aortic root. Pericardium/Pleural No pericardial effusion. MMode/2D Measurements & Calculations LVIDd: 4.5 cm IVSd: 1.1 cm LAV(MOD-bp): 41.4 ml LVIDs: 3.5 cm LVPWd: 1.1 cm LAV(MOD-bp) Indexed: 23.2 ml/m2 FS: 23.6 % LAV(MOD-sp2): 35.7 ml LAV(MOD-sp4): 36.6 ml SV(MOD-sp4): 26.5 ml LVAd ap4: 23.8 cm2 LVAd ap2: 25.2 cm2 LVLd ap4: 6.6 cm LVLd ap2: 7.9 cm EDV(MOD-sp4): 69.7 ml EDV(MOD-sp2): 66.9 ml EDV(sp4-el): 72.5 ml EDV(sp2-el): 67.7 ml LVAs ap4: 17.7 cm2 LVAs ap2: 15.1 cm2 LVLs ap4: 6.2 cm LVLs ap2: 6.8 cm ESV(MOD-sp4): 43.2 ml ESV(MOD-sp2): 29.1 ml ESV(sp4-el): 43.0 ml ESV(sp2-el): 28.8 ml EF(MOD-sp4): 38.0 % EF(MOD-sp2): 56.4 % EF(sp4-el): 40.8 % SV(MOD-sp2): 37.7 ml SV(sp4-el): 29.6 ml LA A4 area: 16.7 cm2 RA A4 area: 13.6 cm2 Doppler Measurements & Calculations MV E max dago: 84.7 cm/sec Lat Peak E' Dago: 4.8 cm/sec Med Peak E' Dago: 2.8 cm/sec MV A max dago: 135.3 cm/sec E/E' lat: 17.5 E/E' med: 29.8 MV E/A: 0.63 MV V2 max: 163.1 cm/sec PA V2 max: 74.0 cm/sec TR max dago: 245.4 cm/sec MV max P.6 mmHg TR max P.1 mmHg MV V2 mean: 99.9 cm/sec MV mean P.3 mmHg MV V2 VTI: 40.2 cm MV P1/2t-pr_phl: 79.6 msec ECHO/Echo Complete Interpretation Summary The estimated ejection fraction is 40-45 %. Moderate LV systolic Dysfunction with global LV Hypokinesia Mild-Moderate MR Mild-Moderate TR No prior Echo to [facility] Ordering Physician: Mikel Akbar Performed By: Dorie Flores, SHAWNACS, RVT
[2021-03-13] MEDS: Pantoprazole Sodium 20 MG Tablet PO ×2 (10:24→20:50)
[2021-03-13] MEDS: Aspirin 81 MG TAB.CHEW PO (10:24)
[2021-03-13] MEDS: oxyCODONE 5 MG Tablet PO (10:27)
[2021-03-13 11:08] LABS: Partial Thromboplast Time > 250.0 Seconds (24.1-36.2)
--- NOTE | 2021-03-13 14:03 | PN.HOSP_ITS ---
Subjective Subjective Feels well. Objective Data Objective Data Vital Signs: Vital Signs Temp Pulse Resp BP Pulse Ox 36.6 C 66 12 144/68 H 100 03/13/21 10:28 03/13/21 12:29 03/13/21 10:28 03/13/21 10:28 03/13/21 10:28 Oxygen Flow Rate (L/min) 2 Oxygen Delivery Method Nasal Cannula Weight: 69.7 kg Body Mass Index (BMI) 24.7 Intake & Output: Intake and Output for Last 24 Hours 03/11/21 03/12/21 03/13/21 23:59 23:59 23:59 Intake Total 633.85 / 633.85 Output Total 225 / 225 Balance 408.85 / 408.85 Lab / Micro Data Result Diagrams: 03/13/21 05:40 03/13/21 05:40 Labs: Laboratory Results - last 24 hr 03/12/21 23:20: WBC 2.1 L, RBC 3.26 L, Hgb 9.8 L, Hct 30.6 L, MCV 93.9, MCH 30.1, MCHC 32.0, RDW Std Deviation 52.1 H, RDW Coeff of Jenny 15.2 H, Plt Count 89 L, MPV 10.9, Immature Gran % (Auto) 1.000 H, Neut % (Auto) 51.6, Lymph % (Auto) 29.2, [place] % (Auto) 17.7 H, Eos % (Auto) 0.0, Baso % (Auto) 0.5, Absolute Neuts (auto) 1.1 L, Absolute Lymphs (auto) 0.61 L, Nucleated RBC % 0, Platelet Estimate MOD 03/12/21 23:20: PT 14.7, INR 1.2, APTT 44.6 H 03/12/21 23:20: Sodium 137, Potassium 3.9, Chloride 108 H, Carbon Dioxide 24.0, Anion Gap 5, BUN 30 H, Creatinine 1.54 H, Estim Creat Clear Calc 26.37, Est GFR (MDRD) Af Amer 41 L, Est GFR (MDRD) Non-Af 34 L, BUN/Creatinine Ratio 19.5, Glucose 123 H, Calcium 7.7 L 03/12/21 23:20: Urine Color Yellow, Urine Clarity Sl. Cloudy, Urine pH 6.0, Ur Specific [place] 1.020, Urine Protein 100 H, Urine Glucose (UA) Normal, Urine K etones Negative, Urine Occult Blood 250 H, Urine Nitrite Positive H, Urine Bilirubin Negative, Urine Urobilinogen Normal, Ur Leukocyte Esterase 500 H, Urine RBC 5-10 SEEN, Urine WBC >100 SEEN, Ur Squamous Epith Cells 0-5 SEEN, Ur R enal Epithelial Cell 0-5 SEEN, Urine Bacteria 4+, Coarse Granular Casts 5-10 SEEN, Urine Mucus 0 SEEN 03/12/21 23:20: Magnesium 1.8, Ferritin 933 H, Total Bilirubin 0.50, Direct Bilirubin 0.14, AST 45 H, ALT 27, Alkaline Phosphatase 61, Lactate Dehydrogenase 308 H, Troponin I High Sens 479 H*, C-React Prot Ext Range 22.90 H, Total Protein 6.0 L, Albumin 2.8 L, Globulin 3.2 03/12/21 23:20: B-Natriuretic Peptide 297.0 H 03/12/21 23:20: D-Dimer Quant (PE/DVT) > 20.00 H* 03/13/21 04:05: Troponin I High Sens Cancelled 03/13/21 05:40: Procalcitonin 0.40 H 03/13/21 05:40: WBC 1.8 L, RBC 3.05 L, Hgb 9.5 L, Hct 28.5 L, MCV 93.4, MCH 31.1, MCHC 33.3, RDW Std Deviation 52.5 H, RDW Coeff of Jenny 15.4 H, Plt Count 87 L, MPV 11.1, Immature Gran % (Auto) 1.100 H, Neut % (Auto) 60.9, Lymph % (Auto) 26.3, [place] % (Auto) 11.7 H, Eos % (Auto) 0.0, Baso % (Auto) 0.0, Absolute Neuts (auto) 1.1 L, Absolute Lymphs (auto) 0.47 L, Nucleated RBC % 0, Diff Path Review May foll, Ovalocytes 1+, Olivier Cells RARE 03/13/21 05:40: Sodium 135 L, Potassium 4.6, Chloride 106, Carbon Dioxide 22.0, Anion Gap 7, BUN 29 H, Creatinine 1.41 H, Estim Creat Clear Calc 28.80, Est GFR (MDRD) Af Amer 46 L, Est GFR (MDRD) Non-Af 38 L, BUN/Creatinine Ratio 20.6 H, Glucose 162 H, Calcium 7.4 L, Total Bilirubin 0.50, AST 53 H, ALT 27, Alkaline Phosphatase 62, Troponin I High Sens 483 H*, Total Protein 6.0 L, Albumin 2.5 L, Globulin 3.5, Albumin/Globulin Ratio 0.7 L, TSH 3.02, Free T4 1.45 03/13/21 10:11: APTT > 250.0 H* Micro: Microbiology 03/13/21 02:06 Urine Catheter - Catheter Legionella Antigen - Final 03/13/21 02:06 Urine Catheter - Catheter Streptococcus pneumoniae Antigen (M - Final 03/13/21 04:55 Mucosa - Nose Respiratory Panel (PCR) - Final 03/12/21 22:40 Nasal Secretion SARS-CoV-2 Antigen (Rapid) - Final SARS-CoV-2 (COVID 19) Radiography Diagnostic Testing: Radiology Impression Chest X-Ray 03/12/21 00:08 IMPRESSION: Hazy bilateral airspace disease of uncertain chronicity, suspicious for pneumonia in the appropriate clinical setting. Recommend two-view chest x-ray follow-up. at 0034 Reported and signed by: Gian Johns MD Electronically Signed: Gian Johns MD at 0:33 EST Tel , Service support , Brain CT 03/12/21 22:21 IMPRESSION: Chronic involutional and white matter changes. No acute intracranial process. Individualized dose optimization techniques were used for this CT. at 0025 Reported and signed by: Gian Johns MD Electronically Signed: Gian Johns MD at 0:24 EST Tel , Service support , Hip/Pelvis X-Ray 03/12/21 22:21 IMPRESSION: Comminuted intertrochanteric fracture right femur. at 0036 Reported and signed by: Gian Johns MD Electronically Signed: Gian Johns MD at 0:34 EST Tel , Service support , Echocardiogram 03/13/21 08:33 Interpretation Summary The estimated ejection fraction is 40-45 %. Moderate LV systolic Dysfunction with global LV Hypokinesia Mild-Moderate MR Mild-Moderate TR [facility] _ Ordering Physician: Mikel Akbar Performed By: Dorie Flores, SHAWNACS, RVT Physical Exam Const alert Resp normal respiratory effort, no retractions, no use of accessory muscles and clear to auscultation bilaterally Cardio regular rate, regular rhythm, S1 normal heart sound and S2 normal heart sound GI normal to inspection, nondistended, normoactive bowel sounds, soft to palpation, non-tender and non-distended Extremity normal to inspection Neuro Sensorium / Orientation: awake and alert Assessment & Plan Assessment/Plan (1) Closed intertrochanteric fracture of femur: QUALIFIERS: Encounter type: initial encounter Fracture alignment: nondisplaced Laterality: right Qualified Code(s): S72.144A - Nondisplaced intertrochanteric fracture of right femur, initial encounter for closed fracture (2) Pneumonia due to 2019 novel coronavirus: (3) Urinary tract infection: QUALIFIERS: Urinary tract infection type: acute cystitis Hematuria presence: without hematuria Qualified Code(s): N30.00 - Acute cystitis without hematuria (4) NSTEMI, initial episode of care: (5) Cardiomyopathy: QUALIFIERS: Cardiomyopathy type: unspecified Qualified Code(s): I42.9 - Cardiomyopathy, unspecified (6) Pancytopenia: PLAN: 1. right hip fracture * s/p fall * active medical issues need to be addressed prior to surgery. DW Dr. Jerry * check 25 OHd * consult cardiology for cardiac clearance * high risk and requires further assessment/optimization prior to surgery 2. COVID 19 * on 2 Liters * unvaccinated * onset around 03/11, quarantine through 03/31 * no remdesivir given CKD 3. UTI * on CTX * follow up Cx 4. NSTEMI * on heparin gtt and ASA * cardiology on consult 5. Cardiomyopathy * EF 40% * cardiology on consult 6. pancytopenia * ongoing * unknown if acute v chronic 7. VTE prophylaxis: not indicated with anticoagulation. Charges/Coding Procedures Hospitalists Procedures: Other Procedure - See Report (non billable rounding as pt admitted after midnight. )
--- NOTE | 2021-03-13 14:16 | PCM.CONS.C ---
Assessment & Plan Assessment/Plan (1) Pancytopenia: (2) Closed intertrochanteric fracture of femur: QUALIFIERS: Encounter type: initial encounter Fracture alignment: nondisplaced Laterality: right Qualified Code(s): S72.144A - Nondisplaced intertrochanteric fracture of right femur, initial encounter for closed fracture (3) Pneumonia due to 2019 novel coronavirus: (4) Urinary tract infection: QUALIFIERS: Hematuria presence: without hematuria Urinary tract infection type: acute cystitis Qualified Code(s): N30.00 - Acute cystitis without hematuria (5) NSTEMI, initial episode of care: PLAN: 80-year-old female who was admitted following a fall with right hip pain She has comminuted right intertrochanteric hip fracture. Patient has a Covid 19 pneumonia Cardiac consultation requested due to elevated cardiac biomarkers. Other medical problem include history of anemia chronic kidney disease, former tobacco use and history of severe dementia. Cardiac care plan recommendation; 1. The elevated cardiac biomarkers/high sensitive troponin is secondary to type II myocardial infarction with demand myocardial ischemia 2. Echocardiographic evaluation showed moderate LV systolic dysfunction with ejection fraction in the range of 40-45% 3. Patient currently on medical treatment with heparin aspirin, I added low-dose beta-malik and statin. Due to chronic renal insufficiency not a candidate for LORY inhibitor or ARB for now Patient has pancytopenia. 4. Risk assessment for right intertrochanteric hip fracture surgery, moderate to high risk for cardiopulmonary event. We will continue to monitor and follow-up clinically with medical therapy, HPI Consult Data Date of Consult: 03/17/21 HPI Narrative Reason for Consultation: Patient with Covid pneumonia/type II CT, demand myocardial Ischemia HPI Narrative: JIMBO HILL, is a 80 F who presents [facility] Medical History Anemia CKD (chronic kidney disease) Former tobacco use Severe dementia Home Medications multivitamin 1 tab PO DAILY 03/12/21 [History Last Taken Unknown] Allergy/AdvReac Type Severity Reaction Status Date / Time bee venom protein (honey bee) Allergy Hives Verified 03/13/21 03:30 Penicillins Allergy Hives Verified 03/13/21 03:30 Family History unable to obtain Surgical History Hx of cholecystectomy Hx of hysterectomy S/P bilateral foot surgery Social History household members: other details: Patient moved in with her son ~ 15 years prior following her . Smoking Status: Former smoker how long ago did patient quit smoking: Smoked x 30 years, quit ~ 15 years ago. alcohol intake: never substance use type: does not use Physical Exam Narrative Cough note from review of the current data, cardiac telemetry, current lab EKG Review of the echocardiogram. Examination was not performed to minimize risk of spread of Covid 19 Risk Stratification Risk Stratification Applicable: No Objective Data Vital Signs: Vital Signs Temp Pulse Resp BP Pulse Ox 97.8 F 66 12 144/68 H 100 03/13/21 10:28 03/13/21 12:29 03/13/21 10:28 03/13/21 10:28 03/13/21 10:28 Oxygen Flow Rate (L/min) 2 Oxygen Delivery Method Nasal Cannula Weight: 153 lb 10.595 oz Body Mass Index (BMI) 24.7 Intake & Output: Intake and Output for Last 24 Hours 03/11/21 03/12/21 03/13/21 23:59 23:59 23:59 Intake Total 633.85 / 633.85 Output Total 225 / 225 Balance 408.85 / 408.85 Lab / Micro Data Result Diagrams: 03/17/21 06:39 03/17/21 06:26 Labs: Laboratory Results - last 24 hr 03/12/21 23:20: WBC 2.1 L, RBC 3.26 L, Hgb 9.8 L, Hct 30.6 L, MCV 93.9, MCH 30.1, MCHC 32.0, RDW Std Deviation 52.1 H, RDW Coeff of Jenny 15.2 H, Plt Count 89 L, MPV 10.9, Immature Gran % (Auto) 1.000 H, Neut % (Auto) 51.6, Lymph % (Auto) 29.2, [place] % (Auto) 17.7 H, Eos % (Auto) 0.0, Baso % (Auto) 0.5, Absolute Neuts (auto) 1.1 L, Absolute Lymphs (auto) 0.61 L, Nucleated RBC % 0, Platelet Estimate MOD DEC 03/12/21 23:20: PT 14.7, INR 1.2, APTT 44.6 H 03/12/21 23:20: Sodium 137, Potassium 3.9, Chloride 108 H, Carbon Dioxide 24.0, Anion Gap 5, BUN 30 H, Creatinine 1.54 H, Estim Creat Clear Calc 26.37, Est GFR (MDRD) Af Amer 41 L, Est GFR (MDRD) Non-Af 34 L, BUN/Creatinine Ratio 19.5, Glucose 123 H, Calcium 7.7 L 03/12/21 23:20: Urine Color Yellow, Urine Clarity Sl. Cloudy, Urine pH 6.0, Ur Specific [place] 1.020, Urine Protein 100 H, Urine Glucose (UA) Normal, Urine Ketones Negative, Urine Occult Blood 250 H, Urine Nitrite Positive H, Urine Bilirubin Negative, Urine Urobilinogen Normal, Ur Leukocyte Esterase 500 H, Urine RBC 5-10 SEEN, Urine WBC >100 SEEN, Ur Squamous Epith Cells 0-5 SEEN, Ur Renal Epithelial Cell 0-5 SEEN, Urine Bacteria 4+, Coarse Granular Casts 5-10 SEEN, Urine Mucus 0 SEEN 03/12/21 23:20: Magnesium 1.8, Ferritin 933 H, Total Bilirubin 0.50, Direct Bilirubin 0.14, AST 45 H, ALT 27, Alkaline Phosphatase 61, Lactate Dehydrogenase 308 H, Troponin I High Sens 479 H*, C-React Prot Ext Range 22.90 H, Total Protein 6.0 L, Albumin 2.8 L, Globulin 3.2 03/12/21 23:20: B-Natriuretic Peptide 297.0 H 03/12/21 23:20: D-Dimer Quant (PE/DVT) > 20.00 H* 03/13/21 04:05: Troponin I High Sens Cancelled 03/13/21 05:40: Procalcitonin 0.40 H 03/13/21 05:40: WBC 1.8 L, RBC 3.05 L, Hgb 9.5 L, Hct 28.5 L, MCV 93.4, MCH 31.1, MCHC 33.3, RDW Std Deviation 52.5 H, RDW Coeff of Jenny 15.4 H, Plt Count 87 L, MPV 11.1, Immature Gran % (Auto) 1.100 H, Neut % (Auto) 60.9, Lymph % (Auto) 26.3, [place] % (Auto) 11.7 H, Eos % (Auto) 0.0, Baso % (Auto) 0.0, Absolute Neuts (auto) 1.1 L, Absolute Lymphs (auto) 0.47 L, Nucleated RBC % 0, Diff Path Review May foll, Ovalocytes 1+, Olivier Cells RARE 03/13/21 05:40: Sodium 135 L, Potassium 4.6, Chloride 106, Carbon Dioxide 22.0, Anion Gap 7, BUN 29 H, Creatinine 1.41 H, Estim Creat Clear Calc 28.80, Est GFR (MDRD) Af Amer 46 L, Est GFR (MDRD) Non-Af 38 L, BUN/Creatinine Ratio 20.6 H, Glucose 162 H, Calcium 7.4 L, Total Bilirubin 0.50, AST 53 H, ALT 27, Alkaline Phosphatase 62, Troponin I High Sens 483 H*, Total Protein 6.0 L, Albumin 2.5 L, Globulin 3.5, Albumin/Globulin Ratio 0.7 L, TSH 3.02, Free T4 1.45 03/13/21 10:11: APTT > 250.0 H* Micro: Microbiology 03/13/21 02:06 Urine Catheter - Catheter Legionella Antigen - Final 03/13/21 02:06 Urine Catheter - Catheter Streptococcus pneumoniae Antigen (M - Final 03/13/21 04:55 Mucosa - Nose Respiratory Panel (PCR) - Final 03/12/21 22:40 Nasal Secretion SARS-CoV-2 Antigen (Rapid) - Final SARS-CoV-2 (COVID 19) Cardiology Labs/Tests 03/12/21 23:20: WBC 2.1 L, RBC 3.26 L, Hgb 9.8 L, Hct 30.6 L, MCV 93.9, MCH 30.1, MCHC 32.0, Plt Count 89 L, MPV 10.9, Immature Gran % (Auto) 1.000 H, Neut % (Auto) 51.6, Lymph % (Auto) 29.2, [place] % (Auto) 17.7 H, Eos % (Auto) 0.0, Baso % (Auto) 0.5, Absolute Neuts (auto) 1.1 L, Nucleated RBC % 0 03/12/21 23:20: PT 14.7, INR 1.2, APTT 44.6 H 03/12/21 23:20: Sodium 137, Potassium 3.9, Chloride 108 H, Carbon Dioxide 24.0, Anion Gap 5, BUN 30 H, Creatinine 1.54 H, Est GFR (MDRD) Af Amer 41 L, Est GFR (MDRD) Non-Af 34 L, BUN/Creatinine Ratio 19.5, Glucose 123 H, Calcium 7.7 L 03/12/21 23:20: Urine Color Yellow, Urine Clarity Sl. Cloudy, Urine pH 6.0, Ur Specific [place] 1.020, Urine Protein 100 H, Urine Glucose (UA) Normal, Urine Ketones Negative, Urine Occult Blood 250 H, Urine Nitrite Positive H, Urine Bilirubin Negative, Urine Urobilinogen Normal, Ur Leukocyte Esterase 500 H, Urine RBC 5-10 SEEN, Urine WBC >100 SEEN 03/12/21 23:20: Magnesium 1.8, Ferritin 933 H, Total Bilirubin 0.50, Direct Bilirubin 0.14 03/12/21 23:20: B-Natriuretic Peptide 297.0 H 03/12/21 23:20: D-Dimer Quant (PE/DVT) > 20.00 H* 03/13/21 05:40: WBC 1.8 L, RBC 3.05 L, Hgb 9.5 L, Hct 28.5 L, MCV 93.4, MCH 31.1, MCHC 33.3, Plt Count 87 L, MPV 11.1, Immature Gran % (Auto) 1.100 H, Neut % (Auto) 60.9, Lymph % (Auto) 26.3, [place] % (Auto) 11.7 H, Eos % (Auto) 0.0, Baso % (Auto) 0.0, Absolute Neuts (auto) 1.1 L, Nucleated RBC % 0 03/13/21 05:40: Sodium 135 L, Potassium 4.6, Chloride 106, Carbon Dioxide 22.0, Anion Gap 7, BUN 29 H, Creatinine 1.41 H, Est GFR (MDRD) Af Amer 46 L, Est GFR (MDRD) Non-Af 38 L, BUN/Creatinine Ratio 20.6 H, Glucose 162 H, Calcium 7.4 L, Total Bilirubin 0.50 03/13/21 10:11: APTT > 250.0 H* Rhythm: Normal sinus rhythm ECHO: Moderate global LV hypokinesia with ejection fraction 40-45% Radiography Diagnostic Testing: Radiology Impression Chest X-Ray 03/12/21 00:08 IMPRESSION: Hazy bilateral airspace disease of uncertain chronicity, suspicious for pneumonia in the appropriate clinical setting. Recommend two-view chest x-ray follow-up. at 0034 Reported and signed by: Gian Johns MD Electronically Signed: Gian Johns MD at 0:33 EST Tel , Service support , Brain CT 03/12/21 22:21 IMPRESSION: Chronic involutional and white matter changes. No acute intracranial process. Individualized dose optimization techniques were used for this CT. at 0025 Reported and signed by: Gian Johns MD Electronically Signed: Gian Johns MD at 0:24 EST Tel , Service support , Hip/Pelvis X-Ray 03/12/21 22:21 IMPRESSION: Comminuted intertrochanteric fracture right femur. at 0036 Reported and signed by: Gian Johns MD Electronically Signed: Gian Johns MD at 0:34 EST Tel , Service support , Echocardiogram 03/13/21 08:33 Interpretation Summary The estimated ejection fraction is 40-45 %. Moderate LV systolic Dysfunction with global LV Hypokinesia Mild-Moderate MR Mild-Moderate TR No prior Echo to [facility] Ordering Physician: Mikel Akbar Performed By: Dorie Flores, ARCHIE, RVT
--- NOTE | 2021-03-13 15:17 | CASEMGMT ---
Addendum entered by Joan Doshi 03/13/21 18:37: SW called patient's son, Yossi Ferraro. He said that patient has had no rehab at SNF in the past. He said that his preference for SNF would be [facility] in [place] vs [facility] in [place] as it is closer. JANNET advised that the unit child welfare social worker will be in touch with him regarding discharge planning. No concerns or issues voiced. Joan ADAN Original Note: JANNET Note Referral Source: RN SEAN Referral Reason: Discharge planning SW called patient at 1:57pm. No answer. SW called patient's room again at 2:33 and patient answered. Patient prefers to be called Abigail as she does not like her name, Aylin. She reports no previous SNF placements. SW discussed the possibly of patient needing SNF at discharge. Patient said that she was unable to understand this comic book writer and said talk to the nurse and phone call went . SW will ask CYBER ENGINEER to give patient list of [facility] SNF and PCU SW can follow up with patient later. Plan: TO be determined Joan ADAN
[2021-03-13] MEDS: Carvedilol 3.125 MG TABLET PO ×2 (17:06→20:52)
[2021-03-13 20:25] LABS: Partial Thromboplast Time > 250.0 Seconds (24.1-36.2)
[2021-03-13] MEDS: Atorvastatin Calcium 40 MG Tablet PO (20:50)
[2021-03-14] VITALS (13 sets, daily range): BP systolic 103–156; BP diastolic 49–75; PULSE 61–85; RESP 14–18; TEMP 36.1–37.2; O2SAT 93–97
[2021-03-14 04:52] LABS: Absolute Lymphocyte Count 0.93 X10^3/uL (0.83-4.51); Absolute Neutrophil Count 3.3 X10^3/uL (2.0-7.7); Basophil# 0.01 X10^3/uL; Basophil% 0.2 % (0-1); Hemoglobin 7.2 g/dL (12.0-15.0); Lymphocyte # 0.93 X10^3/ul (0.83-4.51); Lymphocyte % 19.7 % (19-41); Mean Corp Hgb Conc 32.7 g/dL (32-36); Mean Corpuscular Hgb 30.5 pg (27.0-32.0); Mean Corpuscular Volume 93.2 fL (81-99); Mean Platelet Vol. 11.4 fl (6.2-12.0); Monocyte% 10.6 % (0-10); NRBC Flagged by Analyzer 0 % (0-5); Neutrophil # 3.25 X10^3/uL (2.7-7.7); Neutrophil % 68.7 % (47-70); POSITIVE COUNT YES; POSITIVE MORPHOLOGY YES; Platelet Count 98 K/mm3 (150-450); RBC Distribution Width CV 15.4 % (11.6-14.6); RBC Distribution Width SD 52.8 fl (35.1-43.9); Red Blood Count 2.36 M/mm3 (4.2-5.4); White Blood Count 4.7 K/mm3 (4.4-11.0)
[2021-03-14 04:59] LABS: Partial Thromboplast Time 87.3 Seconds (24.1-36.2)
[2021-03-14 05:06] LABS: Differential Indicated SCAN CRITERIA MET
[2021-03-14 05:22] LABS: ALB/GLOB Ratio 0.7 RATIO (0.9-2.4); AST(SGOT) 36 U/L (15-37); Alanine Aminotransfer ALT/SGPT 24 U/L (13-56); Albumin, Serum 2.2 g/dL (3.2-5.0); Alkaline Phosphatase 53 U/L (45-117); Anion Gap 6 (5-15); BUN 39 mg/dL (7-18); BUN/Creat Ratio 22.5 RATIO (10-20); Calcium,Total 7.3 mg/dL (8.5-10.1); Chloride 108 mmol/L (98-107); Creatinine, Serum 1.73 mg/dL (0.55-1.02); EST Glomerular Filtration Rate 30 mL/min (>60); Est Glom Filt Rate - Afr Amer 36 mL/min (>60); Estimated Creatinine Clearance 23.47 ml/min; Glucose 147 mg/dL (74-106); Protein, Total 5.2 g/dL (6.4-8.2); Sodium Level 138 mmol/L (136-145)
[2021-03-14 05:31] LABS: Acanthocytes RARE; Anisocytosis 1+; Burr Cells RARE; Ovalocyte RARE
--- NOTE | 2021-03-14 08:51 | PN.ORTHO_ITS ---
Subjective Subjective Patient is extremely poor historian secondary to dementia. Was admitted Monday with right hip fracture, Covid pneumonia and NSTEMI. Cardiology was consulted. Patient is high risk for surgical fixation of her hip fracture. Objective Data Objective Data Vital Signs: Vital Signs Temp Pulse Resp BP Pulse Ox 98.9 F 71 18 103/64 94 03/14/21 03:00 03/14/21 07:13 03/14/21 03:00 03/14/21 03:00 03/14/21 07:11 Oxygen Flow Rate (L/min) 2 Oxygen Delivery Method Room Air Weight: 158 lb 15.253 oz Body Mass Index (BMI) 24.7 Intake & Output: Intake and Output for Last 24 Hours 03/12/21 03/13/21 03/14/21 23:59 23:59 23:59 Intake Total 2412.18 / 2412.18 33.33 / 33.33 Output Total 600 / 600 100 / 100 Balance 1812.18 / 1812.18 -66.67 / -66.67 Lab / Micro Data Result Diagrams: 03/14/21 04:30 03/14/21 04:30 Labs: Laboratory Results - last 24 hr 03/13/21 10:11: APTT > 250.0 H* 03/13/21 19:35: APTT > 250.0 H* 03/14/21 04:30: WBC 4.7, RBC 2.36 L, Hgb 7.2 L, Hct 22.0 L, MCV 93.2, MCH 30.5, MCHC 32.7, RDW Std Deviation 52.8 H, RDW Coeff of Jenny 15.4 H, Plt Count 98 L, MP V 11.4, Immature Gran % (Auto) 0.800, Neut % (Auto) 68.7, Lymph % (Auto) 19.7, [place] % (Auto) 10.6 H, Eos % (Auto) 0.0, Baso % (Auto) 0.2, Absolute Neuts (auto) 3.3, Absolute Lymphs (auto) 0.93, Nucleated RBC % 0, Anisocytosis 1+, Ovalocytes RARE, Olivier Cells RARE, Acanthocytes (Spur) RARE 03/14/21 04:30: Sodium 138, Potassium 5.0, Chloride 108 H, Carbon Dioxide 24.0, Anion Gap 6, BUN 39 H, Creatinine 1.73 H, Estim Creat Clear Calc 23.47, Est GFR (MDRD) Af Amer 36 L, Est GFR (MDRD) Non-Af 30 L, BUN/Creatinine Ratio 22.5 H, Glucose 147 H, Calcium 7.3 L, Total Bilirubin 0.30, AST 36, ALT 24, Alkaline Phosphatase 53, Total Protein 5.2 L, Albumin 2.2 L, Globulin 3.0, Albumin/Globulin Ratio 0.7 L 03/14/21 04:30: APTT 87.3 H Micro: Microbiology 03/13/21 02:06 Urine Catheter - Catheter Legionella Antigen - Final 03/13/21 02:06 Urine Catheter - Catheter Streptococcus pneumoniae Antigen (M - Final 03/13/21 04:55 Mucosa - Nose Respiratory Panel (PCR) - Final 03/12/21 22:40 Nasal Secretion SARS-CoV-2 Antigen (Rapid) - Final SARS-CoV-2 (COVID 19) Radiography Diagnostic Testing: Radiology Impression Echocardiogram 03/13/21 08:33 Interpretation Summary The estimated ejection fraction is 40-45 %. Moderate LV systolic Dysfunction with global LV Hypokinesia Mild-Moderate MR Mild-Moderate TR No prior Echo to [facility] Ordering Physician: Mikel Akbar Performed By: Dorie Flores, ARCHIE, RVT Physical Exam Const Orientation / Consciousness: confused Extremity Right Lower Extremity: hip joint inspection (RLE shortened and externally rotated. ROM not tested due to known fracture.) Assessment & Plan Assessment/Plan (1) Closed intertrochanteric fracture of femur: QUALIFIERS: Encounter type: initial encounter Fracture alignment: nondisplaced Laterality: right Qualified Code(s): S72.144A - Nondisplaced intertrochanteric fracture of right femur, initial encounter for closed fracture PLAN: Will plan on fixation of hip fracture tomorrow pending clearance by anesthesia, Case discussed with hospitalist who agrees that she is high risk, Her son (who is her POA) wishes her to have her hip pinned to aid in pain control.
[2021-03-14] MEDS: guaiFENesin 10 ML UDC (200MG/10ML) 20 ML PO (09:52)
[2021-03-14] MEDS: Aspirin 81 MG TAB.CHEW PO (09:53)
[2021-03-14] MEDS: Carvedilol 3.125 MG TABLET PO ×2 (09:53→21:42)
[2021-03-14] MEDS: Acetaminophen 325 MG Tablet 650 MG PO (09:53)
[2021-03-14] MEDS: dexAMETHasone 4 MG/ML Vial 6 MG IV (09:54)
[2021-03-14] MEDS: Pantoprazole Sodium 20 MG Tablet PO ×2 (09:54→21:42)
[2021-03-14] MEDS: oxyCODONE 5 MG Tablet PO (09:56)
[2021-03-14] MEDS: 0.9% Saline Lock 10 ML Syringe IV (09:58)
[2021-03-14 11:35] LABS: Partial Thromboplast Time 61.4 Seconds (24.1-36.2)
--- NOTE | 2021-03-14 13:25 | PCM.PN.CARD ---
Objective Data Vital Signs: Vital Signs Temp Pulse Resp BP Pulse Ox 98 F 79 15 108/49 L 97 03/14/21 09:59 03/14/21 09:59 03/14/21 09:59 03/14/21 09:59 03/14/21 09:59 Oxygen Flow Rate (L/min) 2 Oxygen Delivery Method Room Air Weight: 158 lb 15.253 oz Body Mass Index (BMI) 24.7 Intake & Output: Intake and Output for Last 24 Hours 03/12/21 03/13/21 03/14/21 23:59 23:59 23:59 Intake Total 2412.18 / 2412.18 33.33 / 33.33 Output Total 600 / 600 100 / 100 Balance 1812.18 / 1812.18 -66.67 / -66.67 Lab / Micro Data Result Diagrams: 03/14/21 04:30 03/14/21 04:30 Labs: Laboratory Results - last 24 hr 03/13/21 19:35: APTT > 250.0 H* 03/14/21 04:30: WBC 4.7, RBC 2.36 L, Hgb 7.2 L, Hct 22.0 L, MCV 93.2, MCH 30.5, MCHC 32.7, RDW Std Deviation 52.8 H, RDW Coeff of Jenny 15.4 H, Plt Count 98 L, MPV 11.4, Immature Gran % (Auto) 0.800, Neut % (Auto) 68.7, Lymph % (Auto) 19.7, [place] % (Auto) 10.6 H, Eos % (Auto) 0.0, Baso % (Auto) 0.2, Absolute Neuts (auto) 3.3, Absolute Lymphs (auto) 0.93, Nucleated RBC % 0, Anisocytosis 1+, Ovalocytes RARE, [place] Cells RARE, Acanthocytes (Spur) RARE 03/14/21 04:30: Sodium 138, Potassium 5.0, Chloride 108 H, Carbon Dioxide 24.0, Anion Gap 6, BUN 39 H, Creatinine 1.73 H, Estim Creat Clear Calc 23.47, Est GFR (MDRD) Af Amer 36 L, Est GFR (MDRD) Non-Af 30 L, BUN/Creatinine Ratio 22.5 H, Glucose 147 H, Calcium 7.3 L, Total Bilirubin 0.30, AST 36, ALT 24, Alkaline Phosphatase 53, Total Protein 5.2 L, Albumin 2.2 L, Globulin 3.0, Albumin/Globulin Ratio 0.7 L 03/14/21 04:30: APTT 87.3 H 03/14/21 11:16: APTT 61.4 H Micro: Microbiology 03/12/21 23:20 Urine Catheter - Catheter Urine Culture - Preliminary GNR lactose upsetting machine operator 03/13/21 02:06 Urine Catheter - Catheter Legionella Antigen - Final 03/13/21 02:06 Urine Catheter - Catheter Streptococcus pneumoniae Antigen (M - Final 03/13/21 04:55 Mucosa - Nose Respiratory Panel (PCR) - Final Cardiology Labs/Tests 03/13/21 19:35: APTT > 250.0 H* 03/14/21 04:30: WBC 4.7, RBC 2.36 L, Hgb 7.2 L, Hct 22.0 L, MCV 93.2, MCH 30.5, MCHC 32.7, Plt Count 98 L, MPV 11.4, Immature Gran % (Auto) 0.800, Neut % (Auto) 68.7, Lymph % (Auto) 19.7, [place] % (Auto) 10.6 H, Eos % (Auto) 0.0, Baso % (Auto) 0.2, Absolute Neuts (auto) 3.3, Nucleated RBC % 0 03/14/21 04:30: Sodium 138, Potassium 5.0, Chloride 108 H, Carbon Dioxide 24.0, Anion Gap 6, BUN 39 H, Creatinine 1.73 H, Est GFR (MDRD) Af Amer 36 L, Est GFR (MDRD) Non-Af 30 L, BUN/Creatinine Ratio 22.5 H, Glucose 147 H, Calcium 7.3 L, Total Bilirubin 0.30 03/14/21 04:30: APTT 87.3 H 03/14/21 11:16: APTT 61.4 H Rhythm: EKG: ECHO: Stress Test: Cardiac Cath: PCI: CT Surgery: Holter monitor: EPS: PPM: CXR: Chest CT Scan:
--- NOTE | 2021-03-14 13:26 | PCM.PN.CARD ---
Subjective Subjective Discomfort in the right hip, no event from last night Objective Data Vital Signs: Vital Signs Temp Pulse Resp BP Pulse Ox 98 F 79 15 108/49 L 97 03/14/21 09:59 03/14/21 09:59 03/14/21 09:59 03/14/21 09:59 03/14/21 09:59 Oxygen Flow Rate (L/min) 2 Oxygen Delivery Method Room Air Weight: 158 lb 15.253 oz Body Mass Index (BMI) 24.7 Intake & Output: Intake and Output for Last 24 Hours 03/12/21 03/13/21 03/14/21 23:59 23:59 23:59 Intake Total 2412.18 / 2412.18 33.33 / 33.33 Output Total 600 / 600 100 / 100 Balance 1812.18 / 1812.18 -66.67 / -66.67 Lab / Micro Data Result Diagrams: 03/14/21 04:30 03/14/21 04:30 Labs: Laboratory Results - last 24 hr 03/13/21 19:35: APTT > 250.0 H* 03/14/21 04:30: WBC 4.7, RBC 2.36 L, Hgb 7.2 L, Hct 22.0 L, MCV 93.2, MCH 30.5, MCHC 32.7, RDW Std Deviation 52.8 H, RDW Coeff of Jenny 15.4 H, Plt Count 98 L, MPV 11.4, Immature Gran % (Auto) 0.800, Neut % (Auto) 68.7, Lymph % (Auto) 19.7, [place] % (Auto) 10.6 H, Eos % (Auto) 0.0, Baso % (Auto) 0.2, Absolute Neuts (auto) 3.3, Absolute Lymphs (auto) 0.93, Nucleated RBC % 0, Anisocytosis 1+, Ovalocytes RARE, [place] Cells RARE, Acanthocytes (Spur) RARE 03/14/21 04:30: Sodium 138, Potassium 5.0, Chloride 108 H, Carbon Dioxide 24.0, Anion Gap 6, BUN 39 H, Creatinine 1.73 H, Estim Creat Clear Calc 23.47, Est GFR (MDRD) Af Amer 36 L, Est GFR (MDRD) Non-Af 30 L, BUN/Creatinine Ratio 22.5 H, Glucose 147 H, Calcium 7.3 L, Total Bilirubin 0.30, AST 36, ALT 24, Alkaline Phosphatase 53, Total Protein 5.2 L, Albumin 2.2 L, Globulin 3.0, Albumin/Globulin Ratio 0.7 L 03/14/21 04:30: APTT 87.3 H 03/14/21 11:16: APTT 61.4 H Micro: Microbiology 03/12/21 23:20 Urine Catheter - Catheter Urine Culture - Preliminary GNR lactose wooling machine operator 03/13/21 02:06 Urine Catheter - Catheter Legionella Antigen - Final 03/13/21 02:06 Urine Catheter - Catheter Streptococcus pneumoniae Antigen (M - Final 03/13/21 04:55 Mucosa - Nose Respiratory Panel (PCR) - Final Cardiology Labs/Tests 03/13/21 19:35: APTT > 250.0 H* 03/14/21 04:30: WBC 4.7, RBC 2.36 L, Hgb 7.2 L, Hct 22.0 L, MCV 93.2, MCH 30.5, MCHC 32.7, Plt Count 98 L, MPV 11.4, Immature Gran % (Auto) 0.800, Neut % (Auto) 68.7, Lymph % (Auto) 19.7, [place] % (Auto) 10.6 H, Eos % (Auto) 0.0, Baso % (Auto) 0.2, Absolute Neuts (auto) 3.3, Nucleated RBC % 0 03/14/21 04:30: Sodium 138, Potassium 5.0, Chloride 108 H, Carbon Dioxide 24.0, Anion Gap 6, BUN 39 H, Creatinine 1.73 H, Est GFR (MDRD) Af Amer 36 L, Est GFR (MDRD) Non-Af 30 L, BUN/Creatinine Ratio 22.5 H, Glucose 147 H, Calcium 7.3 L, Total Bilirubin 0.30 03/14/21 04:30: APTT 87.3 H 03/14/21 11:16: APTT 61.4 H Rhythm: Normal sinus rhythm ECHO: Estimated ejection fraction 40-45% with global LV hypokinesia Physical Exam Narrative Physical exam not performed in this case to minimize risk of spread of COVID-19 Assessment & Plan Assessment/Plan (1) Pancytopenia: (2) Closed intertrochanteric fracture of femur: QUALIFIERS: Encounter type: initial encounter Fracture alignment: nondisplaced Laterality: right Qualified Code(s): S72.144A - Nondisplaced intertrochanteric fracture of right femur, initial encounter for closed fracture (3) Pneumonia due to 2019 novel coronavirus: (4) Urinary tract infection: QUALIFIERS: Urinary tract infection type: acute cystitis Hematuria presence: without hematuria Qualified Code(s): N30.00 - Acute cystitis without hematuria (5) Cardiomyopathy: QUALIFIERS: Cardiomyopathy type: unspecified Qualified Code(s): I42.9 - Cardiomyopathy, unspecified (6) NSTEMI, initial episode of care: PLAN: This 80-year-old patient who presented with a fall and sustained closed right intertrochanteric fracture of femur Has severe dementia and a cardiac consultation requested because of mild elevation of cardiac troponin with type II TX/demand myocardial ischemia Subsequent evaluation of echocardiogram showed reduced LV systolic function ejection fraction 40-45% with global LV hypokinesia consistent with ischemic cardiomyopathy Patient had pancytopenia, COVID-19 pneumonia. Noted hemoglobin low 7.2 Cardiovascular system and recommendation; 1. Patient is scheduled to undergo surgery tomorrow 2. Would recommend blood transfusion with Lasix prior to transfusion We will continue to monitor and follow-up clinically
--- NOTE | 2021-03-14 13:32 | PN.HOSP_ITS ---
Subjective Subjective Feels well. No new issues. Objective Data Objective Data Vital Signs: Vital Signs Temp Pulse Resp BP Pulse Ox 36.6 C 79 15 108/49 L 97 03/14/21 09:59 03/14/21 09:59 03/14/21 09:59 03/14/21 09:59 03/14/21 09:59 Oxygen Flow Rate (L/min) 2 Oxygen Delivery Method Room Air Weight: 72.1 kg Body Mass Index (BMI) 24.7 Intake & Output: Intake and Output for Last 24 Hours 03/12/21 03/13/21 03/14/21 23:59 23:59 23:59 Intake Total 2412.18 / 2412.18 33.33 / 33.33 Output Total 600 / 600 100 / 100 Balance 1812.18 / 1812.18 -66.67 / -66.67 Lab / Micro Data Result Diagrams: 03/14/21 04:30 03/14/21 04:30 Labs: Laboratory Results - last 24 hr 03/13/21 19:35: APTT > 250.0 H* 03/14/21 04:30: WBC 4.7, RBC 2.36 L, Hgb 7.2 L, Hct 22.0 L, MCV 93.2, MCH 30.5, MCHC 32.7, RDW Std Deviation 52.8 H, RDW Coeff of Jenny 15.4 H, Plt Count 98 L, MPV 11.4, Immature Gran % (Auto) 0.800, Neut % (Auto) 68.7, Lymph % (Auto) 19.7, [place] % (Auto) 10.6 H, Eos % (Auto) 0.0, Baso % (Auto) 0.2, Absolute Neuts (auto) 3.3, Absolute Lymphs (auto) 0.93, Nucleated RBC % 0, Anisocytosis 1+, Ovalocytes RARE, [place] Cells RARE, Acanthocytes (Spur) RARE 03/14/21 04:30: Sodium 138, Potassium 5.0, Chloride 108 H, Carbon Dioxide 24.0, Anion Gap 6, BUN 39 H, Creatinine 1.73 H, Estim Creat Clear Calc 23.47, Est GFR (MDRD) Af Amer 36 L, Est GFR (MDRD) Non-Af 30 L, BUN/Creatinine Ratio 22.5 H, Glucose 147 H, Calcium 7.3 L, Total Bilirubin 0.30, AST 36, ALT 24, Alkaline Phosphatase 53, Total Protein 5.2 L, Albumin 2.2 L, Globulin 3.0, Albumin/Globulin Ratio 0.7 L 03/14/21 04:30: APTT 87.3 H 03/14/21 11:16: APTT 61.4 H Micro: Microbiology 03/12/21 23:20 Urine Catheter - Catheter Urine Culture - Preliminary GNR lactose underwriting analyst 03/13/21 02:06 Urine Catheter - Catheter Legionella Antigen - Final 03/13/21 02:06 Urine Catheter - Catheter Streptococcus pneumoniae Antigen (M - Final 03/13/21 04:55 Mucosa - Nose Respiratory Panel (PCR) - Final 03/12/21 22:40 Nasal Secretion SARS-CoV-2 Antigen (Rapid) - Final SARS-CoV-2 (COVID 19) Physical Exam Const alert Neck no lymphadenopathy Resp normal respiratory effort, no retractions, no use of accessory muscles and clear to auscultation bilaterally Cardio regular rate, regular rhythm, S1 normal heart sound and S2 normal heart sound GI normal to inspection, nondistended, normoactive bowel sounds, soft to palpation, non-tender and non-distended Extremity normal to inspection Neuro Sensorium / Orientation: awake and alert Assessment & Plan Assessment/Plan (1) Closed intertrochanteric fracture of femur: QUALIFIERS: Encounter type: initial encounter Fracture alignment: nondisplaced Laterality: right Qualified Code(s): S72.144A - Nondisplaced intertrochanteric fracture of right femur, initial encounter for closed fracture (2) Pneumonia due to 2019 novel coronavirus: (3) Urinary tract infection: QUALIFIERS: Urinary tract infection type: acute cystitis Hematuria presence: without hematuria Qualified Code(s): N30.00 - Acute cystitis without hematuria (4) NSTEMI, initial episode of care: (5) Cardiomyopathy: QUALIFIERS: Cardiomyopathy type: unspecified Qualified Code(s): I42.9 - Cardiomyopathy, unspecified (6) Pancytopenia: PLAN: 1. right hip fracture * s/p fall * active medical issues need to be addressed prior to surgery. SAYRA Jerry * check 25 OHd * consult cardiology for cardiac clearance * high risk and requires further assessment/optimization prior to surgery. No addition optimization needed. SAYRA Rajan, no further cardiac work up at this time. 2. COVID 19 * on 2 Liters * unvaccinated * onset around 03/11, quarantine through 03/31 * no remdesivir given CKD 3. UTI * on CTX * follow up Cx, thus far growing out GNR 4. NSTEMI * cardiology following * heparin gtt held given anemia 5. Cardiomyopathy * EF 40% * cardiology on consult 6. pancytopenia * ongoing * unknown if acute v chronic 7. acute blood loss anemia * DC heparin gtt * transfuse 1 unit. * Goal Hg 8 8. VTE prophylaxis: not indicated with anticoagulation. Charges/Coding Visit Charges Inpatient E&M: 46954 Subs Hosp L2
--- NOTE | 2021-03-14 14:59 | NURSING ---
called son Yossi- informed about surgery and blood transfusion verbal consent given for both
[2021-03-14] MEDS: Atorvastatin Calcium 40 MG Tablet PO (21:42)
[2021-03-14] MEDS: Ceftriaxone 1 GM/50 ML BAG IV (21:42)
[2021-03-15] VITALS (25 sets, daily range): BP systolic 106–155; BP diastolic 44–107; PULSE 60–77; RESP 14–19; TEMP 35.9–36.7; O2SAT 91–100; BMI 25.6
--- NOTE | 2021-03-15 05:55 | EKG12_ITS ---
Test Reason : AM EKG Blood Pressure : / mmHG Vent. Rate : 068 BPM Atrial Rate : 068 BPM P-R Int : 162 ms QRS Dur : 086 ms QT Int : 394 ms P-R-T Axes : 069 001 057 degrees QTc Int : 418 ms Normal sinus rhythm Normal ECG When compared with ECG of 12-MAR-2021 22:29, MANUAL COMPARISON REQUIRED, DATA IS UNCONFIRMED Confirmed by KATALINA LOPEZ, NORMA ([id number]), web editor LEDY CARRILLO ([id number]) on 03/16/2021 1:51:27 PM Referred By: REHAN Confirmed By:NORMA DARDEN MD
[2021-03-15 06:41] LABS: Absolute Lymphocyte Count 0.93 X10^3/uL (0.83-4.51); Basophil# 0.01 X10^3/uL; Basophil% 0.2 % (0-1); Hemoglobin 8.9 g/dL (12.0-15.0); Lymphocyte # 0.93 X10^3/ul (0.83-4.51); Lymphocyte % 15.9 % (19-41); Mean Corpuscular Hgb 30.8 pg (27.0-32.0); Mean Corpuscular Volume 93.4 fL (81-99); Mean Platelet Vol. 11.4 fl (6.2-12.0); Monocyte% 15.4 % (0-10); NRBC Flagged by Analyzer 0 % (0-5); Neutrophil # 3.96 X10^3/uL (2.7-7.7); Neutrophil % 67.5 % (47-70); POSITIVE MORPHOLOGY YES; Platelet Count 119 K/mm3 (150-450); RBC Distribution Width CV 14.9 % (11.6-14.6); RBC Distribution Width SD 50.9 fl (35.1-43.9); Red Blood Count 2.89 M/mm3 (4.2-5.4); White Blood Count 5.9 K/mm3 (4.4-11.0)
[2021-03-15 06:44] LABS: Differential Indicated SCAN CRITERIA MET
[2021-03-15 07:15] LABS: Anion Gap 5 (5-15); BUN 48 mg/dL (7-18); BUN/Creat Ratio 24.4 RATIO (10-20); Calcium,Total 7.8 mg/dL (8.5-10.1); Chloride 108 mmol/L (98-107); Creatinine, Serum 1.97 mg/dL (0.55-1.02); EST Glomerular Filtration Rate 26 mL/min (>60); Est Glom Filt Rate - Afr Amer 31 mL/min (>60); Estimated Creatinine Clearance 20.61 ml/min; Glucose 127 mg/dL (74-106); Potassium 5.1 mmol/L (3.5-5.1); Sodium Level 138 mmol/L (136-145)
[2021-03-15 07:28] LABS: Hypochromasia 2+; Platelet Estimate SLT DEC (ADEQ); Schistocytes RARE
[2021-03-15] MEDS: Carvedilol 3.125 MG TABLET PO ×2 (08:49→22:30)
[2021-03-15] MEDS: dexAMETHasone 4 MG/ML Vial 6 MG IV (08:50)
[2021-03-15] MEDS: 0.9% Saline Lock 10 ML Syringe IV (08:50)
[2021-03-15 10:21] LABS: Bedside Glucose 110 mg/dL (70-110)
[2021-03-15 10:52] LABS: Prothrombin Time (Protime)PT. 12.8 SECONDS (11.7-14.9)
--- NOTE | 2021-03-15 11:24 | PCM.PN.HOSP ---
Subjective Subjective Doing well, no issues overnight still with right hip pain, pending repair today Objective Data Objective Data Vital Signs: Vital Signs Temp Pulse Resp BP Pulse Ox 97.1 F L 73 16 155/67 H 93 03/15/21 08:55 03/15/21 08:55 03/15/21 08:55 03/15/21 08:55 03/15/21 08:55 Oxygen Flow Rate (L/min) 2 Oxygen Delivery Method Room Air Weight: 159 lb 6.307 oz Body Mass Index (BMI) 25.6 Intake & Output: Intake and Output for Last 24 Hours 03/14/21 03/15/21 03/16/21 03:59 03:59 03:59 Intake Total 2128.85 / 2128.85 899.80 / 899.80 Output Total 600 / 600 680 / 680 Balance 1528.85 / 1528.85 219.80 / 219.80 Lab / Micro Data Result Diagrams: 03/16/21 05:08 03/16/21 05:08 Labs: Laboratory Results - last 24 hr 03/14/21 11:16: APTT 61.4 H 03/14/21 13:55: Blood Type A POSITIVE, Antibody Screen NEGATIVE, Crossmatch See Detail 03/15/21 05:58: WBC 5.9, RBC 2.89 L, Hgb 8.9 L, Hct 27.0 L, MCV 93.4, MCH 30.8, MCHC 33.0, RDW Std Deviation 50.9 H, RDW Coeff of Jenny 14.9 H, Plt Count 119 L, MPV 11.4, Immature Gran % (Auto) 1.000 H, Neut % (Auto) 67.5, Lymph % (Auto) 15.9 L, [place] % (Auto) 15.4 H, Eos % (Auto) 0.0, Baso % (Auto) 0.2, Absolute Neuts (auto) 4.0, Absolute Lymphs (auto) 0.93, Nucleated RBC % 0, Platelet Estimate SLT DEC, Hypochromasia 2+, Schistocytes RARE 03/15/21 05:58: Sodium 138, Potassium 5.1, Chloride 108 H, Carbon Dioxide 25.0, Anion Gap 5, BUN 48 H, Creatinine 1.97 H, Estim Creat Clear Calc 20.61, Est GFR (MDRD) Af Amer 31 L, Est GFR (MDRD) Non-Af 26 L, BUN/Creatinine Ratio 24.4 H, Glucose 127 H, Calcium 7.8 L 03/15/21 06:22: PT 12.8, INR 1.0 03/15/21 08:47: POC Glucose 110 Micro: Microbiology 03/12/21 23:20 Urine Catheter - Catheter Urine Culture - Final Escherichia coli 03/13/21 02:06 Urine Catheter - Catheter Legionella Antigen - Final 03/13/21 02:06 Urine Catheter - Catheter Streptococcus pneumoniae Antigen (M - Final 03/13/21 04:55 Mucosa - Nose Respiratory Panel (PCR) - Final 03/12/21 22:40 Nasal Secretion SARS-CoV-2 Antigen (Rapid) - Final SARS-CoV-2 (COVID 19) Radiography Diagnostic Testing: Radiology Impression Venous Doppler Study 03/13/21 07:00 Interpretation Summary Deep veins of the lower extremities are bilaterally patent and compressible segmentally. There is no evidence of deep vein thrombosis on either side. Valvular competence appears intact within the proximal deep venous systems bilaterally. The great saphenous veins appear bilaterally patent and compressible segmentally. Ordering Physician: Mary Carmen Bell Performed By: Dorie Flores, ARCHIE, RVT Physical Exam Const alert, oriented x3 and no apparent distress General Appearance: cooperative HEENT normocephalic and moist oral mucous membranes Eyes PERRL, EOMs intact bilaterally and conjunctivae normal Neck supple and no JVD Resp normal respiratory effort, no retractions, no use of accessory muscles and clear to auscultation bilaterally Auscultation: Negative for crackles, rales, rhonchi or wheezes Cardio regular rate, regular rhythm, S1 normal heart sound, S2 normal heart sound and no murmurs GI soft to palpation, non-tender and non-distended; Negative for hepatosplenomegaly Extremity no clubbing, cyanosis or edema Extremity Narrative: Tenderness to right hip Skin no rashes or lesions noted Neuro no focal motor deficits and no sensory deficits noted Psych affect normal Appearance: appropriate Assessment & Plan Assessment/Plan (1) Closed intertrochanteric fracture of femur: QUALIFIERS: Encounter type: initial encounter Fracture alignment: nondisplaced Laterality: right Qualified Code(s): S72.144A - Nondisplaced intertrochanteric fracture of right femur, initial encounter for closed fracture (2) Pneumonia due to 2019 novel coronavirus: (3) Urinary tract infection: QUALIFIERS: Hematuria presence: without hematuria Urinary tract infection type: acute cystitis Qualified Code(s): N30.00 - Acute cystitis without hematuria (4) NSTEMI, initial episode of care: (5) Cardiomyopathy: QUALIFIERS: Cardiomyopathy type: unspecified Qualified Code(s): I42.9 - Cardiomyopathy, unspecified (6) Pancytopenia: PLAN: 1. Right hip fracture status post mechanical fall -Pending repair today ?Cardiology is on board, she is already moderate to high risk given her current non-STEMI. ?PT/OT ?We will likely need placement 2. COVID-19/UTI due to hill[place] sensitive E. coli ?Mildly symptomatic, she is on 2 L nasal cannula. No remdesivir secondary to her renal function ?Continue with Decadron ?Continue with Rocephin 3. Non-STEMI with cardiomyopathy ?She has no previous medical history, she does not take any medications at home however she was found to have an EF of 40% on echo ?We will hold her heparin drip secondary to surgery and anemia. We will recheck her hemoglobin in the morning 4. Acute blood loss anemia ?This is likely secondary to the heparin drip for non-STEMI ?This was discontinued, she was transfused 1 unit PRBCs and current hemoglobin is 8.9. ?We will monitor hemoglobin and transfuse as necessary DVT: SCDs Charges/Coding Visit Charges Inpatient E&M: 37591 Subs Hosp L2
--- NOTE | 2021-03-15 12:15 | RAD_ITS ---
INDICATION: ORIF GAMMA NAIL EXAMINATION/TECHNIQUE: X-RAY - RIGHT XR Hip Unilateral with Pelvis when performed; 2-3 Views 3 VIEWS COMPARISON: None. FINDINGS: BONES/JOINTS: Comminuted intertrochanteric fracture right hip with varus angulation at the apex of fracture. RAD/Hip Min 2 Views (Portable) IMPRESSION: Comminuted intertrochanteric fracture right hip with varus angulation Electronically Signed: Francesco Odonnell MD at 14:22 EST Tel , Service support ,
--- NOTE | 2021-03-15 12:48 | CASEMGMT ---
SW called patient's son, Yossi and confirmed that he is in agreement with [facility] for patient when she is ready. JANNET called [facility] regarding referral and also faxed information. Await response. Radha PEREA
--- NOTE | 2021-03-15 13:35 | CASEMGMT ---
JANNET received a call from Domenica at [facility] and they can accept patient. Domenica asked that JANNET keep her updated. Radha Daley MSW ELIAZAR
--- NOTE | 2021-03-15 14:12 | SUR.PHASEI ---
blood bank called at 1410, [address]BC per [address] moffett .
--- NOTE | 2021-03-15 14:19 | PCM.OPRPT ---
Report of Operation Date of Procedure: 03/15/21 Pre-Operative Diagnosis: 4 part, comminuted intertrochanteric fracture right hip Post-Operative Diagnosis: same Surgery/Procedure Performed:: ORIF right hip with short Gamma nail Surgeon: Tao Anderson mechanical research engineer: Walter Vann Type of Anesthesia: General Anesthesiologist: Mikel Argueta Estimated Blood Loss (mL): 20 cc Admit VTE Documentation VTE Present on Admission: No VTE Mechan Device Prophylaxis: SCD's and Thigh High BRANDIE Hose VTE Pharm Prophylaxis ordered?: Yes
--- NOTE | 2021-03-15 15:16 | PN.CARD_ITS ---
Subjective Subjective No events noted from last night Objective Data Vital Signs: Vital Signs Temp Pulse Resp BP Pulse Ox 96.6 F L 76 16 139/107 H 98 03/15/21 14:44 03/15/21 15:00 03/15/21 15:00 03/15/21 15:00 03/15/21 15:00 Oxygen Flow Rate (L/min) 2 Oxygen Delivery Method Room Air Weight: 159 lb 6.307 oz Body Mass Index (BMI) 25.6 Intake & Output: Intake and Output for Last 24 Hours 03/13/21 03/14/21 03/15/21 23:59 23:59 23:59 Intake Total 2412.18 / 2412.18 899.80 / 899.80 106 / 106 Output Total 600 / 600 300 / 680 480 / 480 Balance 1812.18 / 1812.18 599.80 / 219.80 -374 / -374 Lab / Micro Data Result Diagrams: 03/15/21 05:58 03/15/21 05:58 Labs: Laboratory Results - last 24 hr 03/14/21 13:55: Blood Type A POSITIVE, Antibody Screen NEGATIVE, Crossmatch See Detail 03/14/21 13:55: Crossmatch See Detail 03/15/21 05:58: WBC 5.9, RBC 2.89 L, Hgb 8.9 L, Hct 27.0 L, MCV 93.4, MCH 30.8, MCHC 33.0, RDW Std Deviation 50.9 H, RDW Coeff of Jenny 14.9 H, Plt Count 119 L, MPV 11.4, Immature Gran % (Auto) 1.000 H, Neut % (Auto) 67.5, Lymph % (Auto) 15.9 L, [place] % (Auto) 15.4 H, Eos % (Auto) 0.0, Baso % (Auto) 0.2, Absolute Neuts (auto) 4.0, Absolute Lymphs (auto) 0.93, Nucleated RBC % 0, Platelet Estimate SLT DEC, Hypochromasia 2+, Schistocytes RARE 03/15/21 05:58: Sodium 138, Potassium 5.1, Chloride 108 H, Carbon Dioxide 25.0, Anion Gap 5, BUN 48 H, Creatinine 1.97 H, Estim Creat Clear Calc 20.61, Est GFR (MDRD) Af Amer 31 L, Est GFR (MDRD) Non-Af 26 L, BUN/Creatinine Ratio 24.4 H, Glucose 127 H, Calcium 7.8 L 03/15/21 06:22: PT 12.8, INR 1.0 03/15/21 08:47: POC Glucose 110 Micro: Microbiology 03/12/21 23:20 Urine Catheter - Catheter Urine Culture - Final Escherichia coli Cardiology Labs/Tests 03/15/21 05:58: WBC 5.9, RBC 2.89 L, Hgb 8.9 L, Hct 27.0 L, MCV 93.4, MCH 30.8, MCHC 33.0, Plt Count 119 L, MPV 11.4, Immature Gran % (Auto) 1.000 H, Neut % (Auto) 67.5, Lymph % (Auto) 15.9 L, [place] % (Auto) 15.4 H, Eos % (Auto) 0.0, Baso % (Auto) 0.2, Absolute Neuts (auto) 4.0, Nucleated RBC % 0 03/15/21 05:58: Sodium 138, Potassium 5.1, Chloride 108 H, Carbon Dioxide 25.0, Anion Gap 5, BUN 48 H, Creatinine 1.97 H, Est GFR (MDRD) Af Amer 31 L, Est GFR (MDRD) Non-Af 26 L, BUN/Creatinine Ratio 24.4 H, Glucose 127 H, Calcium 7.8 L 03/15/21 06:22: PT 12.8, INR 1.0 Rhythm: EKG: ECHO: Stress Test: Cardiac Cath: PCI: CT Surgery: Holter monitor: EPS: PPM: CXR: Chest CT Scan: Radiography Diagnostic Testing: Radiology Impression Venous Doppler Study 03/13/21 07:00 Interpretation Summary Deep veins of the lower extremities are bilaterally patent and compressible segmentally. There is no evidence of deep vein thrombosis on either side. Valvular competence appears intact within the proximal deep venous systems bilaterally. The great saphenous veins appear bilaterally patent and compressible segmentally. Ordering Physician: Mary Carmen Bell Performed By: Dorie Flores RDCS, RVT Hip X-Ray 03/15/21 12:15 IMPRESSION: Comminuted intertrochanteric fracture right hip with varus angulation Electronically Signed: Francesco Odonnell MD at 14:22 EST Tel , Service support , Physical Exam Narrative Patient is post surgery/ORIF For closed right intertrochanteric fracture of femur Assessment & Plan Assessment/Plan (1) Closed intertrochanteric fracture of femur: QUALIFIERS: Encounter type: initial encounter Fracture alignment: nondisplaced Laterality: right Qualified Code(s): S72.144A - Nondisplaced intertrochanteric fracture of right femur, initial encounter for closed fracture (2) Pneumonia due to 2019 novel coronavirus: (3) Urinary tract infection: QUALIFIERS: Urinary tract infection type: acute cystitis Hematuria presence: without hematuria Qualified Code(s): N30.00 - Acute cystitis without hematuria (4) Cardiomyopathy: QUALIFIERS: Cardiomyopathy type: unspecified Qualified Code(s): I42.9 - Cardiomyopathy, unspecified (5) Pancytopenia: (6) NSTEMI, initial episode of care: PLAN: 80-year-old patient with COVID-19 pneumonia Patient has right closed intertrochanteric fracture of the femur underwent ORIF Has elevated high sensitive troponin with a clinical diagnosis of type II M I/demand myocardial ischemia Also patient had pancytopenia and received blood transfusion. Cardiovascular assessment recommendation; 1. We will continue to monitor cardiac telemetry/remained in normal sinus We will continue to follow-up post surgery and check the labs including the electrolytes renal function.
--- NOTE | 2021-03-15 15:37 | SUR.PHASEI ---
EXP DATE ON PAPERWORK FOR BLOOD STATES 04/04/21, BLOOD BAG STATES EXP 04/03/21. HAD RECEPTION AGENT CALL BLOOD BANK. STATES IT IS FINE TO GIVE. EVERYTHING ELSE ON PAPERWORK MATCHES.
[2021-03-15] MEDS: Atorvastatin Calcium 40 MG Tablet PO (22:30)
[2021-03-15] MEDS: Rivaroxaban 2.5 MG Tablet PO (22:30)
[2021-03-15] MEDS: Ceftriaxone 1 GM/50 ML BAG IV (22:37)
[2021-03-15] MEDS: Pantoprazole Sodium 20 MG Tablet PO (22:38)
[2021-03-16] VITALS (12 sets, daily range): BP systolic 111–166; BP diastolic 60–101; PULSE 66–109; RESP 16–20; TEMP 36.1–36.7; O2SAT 93–96
[2021-03-16] MEDS: oxyCODONE 5 MG Tablet PO ×2 (04:53→17:05)
[2021-03-16 06:14] LABS: Absolute Lymphocyte Count 1.49 X10^3/uL (0.83-4.51); Absolute Neutrophil Count 6.6 X10^3/uL (2.0-7.7); Basophil# 0.03 X10^3/uL; Basophil% 0.3 % (0-1); Hematocrit 30.3 % (37-47); Hemoglobin 10.4 g/dL (12.0-15.0); Lymphocyte # 1.49 X10^3/ul (0.83-4.51); Lymphocyte % 15.4 % (19-41); Mean Corp Hgb Conc 34.3 g/dL (32-36); Mean Corpuscular Hgb 29.9 pg (27.0-32.0); Mean Corpuscular Volume 87.1 fL (81-99); Mean Platelet Vol. 11.9 fl (6.2-12.0); Monocyte# 1.43 X10^3/uL; Monocyte% 14.8 % (0-10); NRBC Flagged by Analyzer 0 % (0-5); Neutrophil # 6.56 X10^3/uL (2.7-7.7); Neutrophil % 67.7 % (47-70); POSITIVE MORPHOLOGY YES; Platelet Count 142 K/mm3 (150-450); RBC Distribution Width CV 15.7 % (11.6-14.6); RBC Distribution Width SD 48.8 fl (35.1-43.9); Red Blood Count 3.48 M/mm3 (4.2-5.4); White Blood Count 9.7 K/mm3 (4.4-11.0)
[2021-03-16 06:40] LABS: Differential Indicated SCAN CRITERIA MET
[2021-03-16 06:58] LABS: Anion Gap 8 (5-15); BUN 58 mg/dL (7-18); BUN/Creat Ratio 25.6 RATIO (10-20); Calcium,Total 7.8 mg/dL (8.5-10.1); Chloride 107 mmol/L (98-107); Creatinine, Serum 2.27 mg/dL (0.55-1.02); EST Glomerular Filtration Rate 22 mL/min (>60); Est Glom Filt Rate - Afr Amer 27 mL/min (>60); Estimated Creatinine Clearance 17.89 ml/min; Glucose 145 mg/dL (74-106); Potassium 5.7 mmol/L (3.5-5.1); Sodium Level 136 mmol/L (136-145)
--- NOTE | 2021-03-16 08:01 | PCM.PN.ORT ---
Subjective Subjective Patient lying in bed sleeping. Patient easy to awake. Patient is confused to her normal baseline. Patient denies any complaint at this time. Patient is Denies chest pain, shortness of breath, calf pain, nausea vomiting.very pleasant, states pain is well-managed. Objective Data Objective Data Vital Signs: Vital Signs Temp Pulse Resp BP Pulse Ox 97.6 F L 66 19 H 147/72 H 96 03/16/21 03:50 03/16/21 07:00 03/16/21 03:50 03/16/21 03:50 03/16/21 03:50 Oxygen Flow Rate (L/min) 2 Oxygen Delivery Method Nasal Cannula Weight: 74.6 kg Body Mass Index (BMI) 25.6 Intake & Output: Intake and Output for Last 24 Hours 03/14/21 03/15/21 03/16/21 23:59 23:59 23:59 Intake Total 899.80 / 899.80 1008 / 1008 104 / 104 Output Total 300 / 680 510 / 510 50 / 50 Balance 599.80 / 219.80 498 / 498 54 / 54 Lab / Micro Data Result Diagrams: 03/16/21 05:08 03/16/21 05:08 Labs: Laboratory Results - last 24 hr 03/14/21 13:55: Crossmatch See Detail 03/15/21 06:22: PT 12.8, INR 1.0 03/15/21 08:47: POC Glucose 110 03/16/21 05:08: WBC 9.7, RBC 3.48 L, Hgb 10.4 L, Hct 30.3 L, MCV 87.1 D, MCH 29.9, MCHC 34.3, RDW Std Deviation 48.8 H, RDW Coeff of Jenny 15.7 H, Plt Count 142 L, MPV 11.9, Immature Gran % (Auto) 1.800 H, Neut % (Auto) 67.7, Lymph % (Auto) 15.4 L, [place] % (Auto) 14.8 H, Eos % (Auto) 0.0, Baso % (Auto) 0.3, Absolute Neuts (auto) 6.6, Absolute Lymphs (auto) 1.49, Nucleated RBC % 0 03/16/21 05:08: Sodium 136, Potassium 5.7 H, Chloride 107, Carbon Dioxide 21.0, Anion Gap 8, BUN 58 H, Creatinine 2.27 H, Estim Creat Clear Calc 17.89, Est GFR (MDRD) Af Amer 27 L, Est GFR (MDRD) Non-Af 22 L, BUN/Creatinine Ratio 25.6 H, Glucose 145 H, Calcium 7.8 L Micro: Microbiology 03/12/21 23:20 Urine Catheter - Catheter Urine Culture - Final Escherichia coli 03/13/21 02:06 Urine Catheter - Catheter Legionella Antigen - Final 03/13/21 02:06 Urine Catheter - Catheter Streptococcus pneumoniae Antigen (M - Final 03/13/21 04:55 Mucosa - Nose Respiratory Panel (PCR) - Final 03/12/21 22:40 Nasal Secretion SARS-CoV-2 Antigen (Rapid) - Final SARS-CoV-2 (COVID 19) Radiography Diagnostic Testing: Radiology Impression Hip X-Ray 03/15/21 12:15 IMPRESSION: Comminuted intertrochanteric fracture right hip with varus angulation Electronically Signed: Francesco Odonnell MD at 14:22 EST Tel , Service support , Physical Exam Narrative Upon exam patient laying comfortably in bed. Patient in no respiratory distress, speaking in full sentences. The incisions are clean dry intact from the ORIF of the right hip fracture. Patient good flexion-extension of the knee. She had good strong distal pulses over the posterior tibial and dorsalis pedis pulse. No calf tenderness. Neurovascular is otherwise intact. Const alert Neuro CN's II-XII intact bilaterally Psych Memory / Cognition: cognition impaired Assessment & Plan Assessment/Plan (1) Status post open reduction and internal fixation (ORIF) of fracture: PLAN: 1. Continue all pain medications as prescribed 2. Continue anticoagulation as directed by medicine 3. Medicine will continue to medically manage patient. 4. Patient is orthopedically stable 5. Patient can be discharged to [facility] when cleared by medicine 6. Patient can toe-touch weight-bear with transfer and assistance. 7. Maxwell can be removed on 03/29/2021 8. Patient can shower 03/21/2021 9. Dressing change in 2 days 10. Continue ice to operative area 11. Patient to follow-up with Dr. Anderson in 2 weeks (2) Closed intertrochanteric fracture of femur: QUALIFIERS: Encounter type: initial encounter Fracture alignment: nondisplaced Laterality: right Qualified Code(s): S72.144A - Nondisplaced intertrochanteric fracture of right femur, initial encounter for closed fracture
[2021-03-16] MEDS: dexAMETHasone 4 MG/ML Vial 6 MG IV (08:22)
[2021-03-16] MEDS: 0.9% Normal Saline 1,000 ML 100 ML IV ×2 (08:22→18:31)
[2021-03-16] MEDS: 0.9% Saline Lock 10 ML Syringe IV (08:22)
[2021-03-16] MEDS: Aspirin 81 MG TAB.CHEW PO (08:23)
[2021-03-16] MEDS: Pantoprazole Sodium 20 MG Tablet PO ×2 (08:23→22:08)
[2021-03-16] MEDS: Rivaroxaban 2.5 MG Tablet PO ×2 (08:23→22:08)
[2021-03-16] MEDS: Carvedilol 3.125 MG TABLET PO ×2 (08:23→22:08)
--- NOTE | 2021-03-16 09:15 | CASEMGMT ---
JANNET faxed PT/OT evaluations to [facility]. Radha Daley [employer] ELIAZAR
--- NOTE | 2021-03-16 13:09 | PN.HOSP_ITS ---
Objective Data Objective Data Vital Signs: Vital Signs Temp Pulse Resp BP Pulse Ox 97.0 F L 75 16 111/60 95 03/16/21 12:29 03/16/21 12:29 03/16/21 12:29 03/16/21 12:29 03/16/21 12:29 Oxygen Flow Rate (L/min) 2 Oxygen Delivery Method Room Air Weight: 164 lb 7.437 oz Body Mass Index (BMI) 25.6 Intake & Output: Intake and Output for Last 24 Hours 03/15/21 03/16/21 03/17/21 03:59 03:59 03:59 Intake Total 899.80 / 899.80 1060 / 1060 112 / 112 Output Total 680 / 680 130 / 130 150 / 150 Balance 219.80 / 219.80 930 / 930 -38 / -38 Lab / Micro Data Result Diagrams: 03/17/21 13:09 03/17/21 06:26 Labs: Laboratory Results - last 24 hr 03/14/21 13:55: Crossmatch See Detail 03/16/21 05:08: WBC 9.7, RBC 3.48 L, Hgb 10.4 L, Hct 30.3 L, MCV 87.1 D, MCH 29.9, MCHC 34.3, RDW Std Deviation 48.8 H, RDW Coeff of Jenny 15.7 H, Plt Count 142 L, MPV 11.9, Immature Gran % (Auto) 1.800 H, Neut % (Auto) 67.7, Lymph % (Auto) 15.4 L, [place] % (Auto) 14.8 H, Eos % (Auto) 0.0, Baso % (Auto) 0.3, Absolute Neuts (auto) 6.6, Absolute Lymphs (auto) 1.49, Nucleated RBC % 0 03/16/21 05:08: Sodium 136, Potassium 5.7 H, Chloride 107, Carbon Dioxide 21.0, Anion Gap 8, BUN 58 H, Creatinine 2.27 H, Estim Creat Clear Calc 17.89, Est GFR (MDRD) Af Amer 27 L, Est GFR (MDRD) Non-Af 22 L, BUN/Creatinine Ratio 25.6 H, Glucose 145 H, Calcium 7.8 L Micro: Microbiology 03/12/21 23:20 Urine Catheter - Catheter Urine Culture - Final Escherichia coli 03/13/21 02:06 Urine Catheter - Catheter Legionella Antigen - Final 03/13/21 02:06 Urine Catheter - Catheter Streptococcus pneumoniae Antigen (M - Final 03/13/21 04:55 Mucosa - Nose Respiratory Panel (PCR) - Final 03/12/21 22:40 Nasal Secretion SARS-CoV-2 Antigen (Rapid) - Final SARS-CoV-2 (COVID 19) Radiography Diagnostic Testing: Radiology Impression Hip X-Ray 03/15/21 12:15 IMPRESSION: Comminuted intertrochanteric fracture right hip with varus angulation Electronically Signed: Francesco Odonnell MD at 14:22 EST Tel , Service support , Physical Exam Const alert and no apparent distress General Appearance: cooperative HEENT normocephalic and moist oral mucous membranes Eyes PERRL, EOMs intact bilaterally and conjunctivae normal Neck supple and no JVD Resp normal respiratory effort, no retractions, no use of accessory muscles and clear to auscultation bilaterally Auscultation: Negative for crackles, rales, rhonchi or wheezes Cardio regular rate, regular rhythm, S1 normal heart sound, S2 normal heart sound and no murmurs GI soft to palpation, non-tender and non-distended; Negative for hepatosplenomegaly Extremity normal to inspection and no clubbing, cyanosis or edema Extremity Narrative: Tenderness to right hip Skin no rashes or lesions noted Skin Narrative: Dressing intact over incision Neuro no focal motor deficits and no sensory deficits noted Sensorium / Orientation: awake and alert Psych affect normal Appearance: appropriate Assessment & Plan Assessment/Plan (1) Closed intertrochanteric fracture of femur: QUALIFIERS: Encounter type: initial encounter Fracture alignment: nondisplaced Laterality: right Qualified Code(s): S72.144A - Nondisplaced intertrochanteric fracture of right femur, initial encounter for closed fracture (2) Pneumonia due to 2019 novel coronavirus: (3) Urinary tract infection: QUALIFIERS: Hematuria presence: without hematuria Urinary tract infection type: acute cystitis Qualified Code(s): N30.00 - Acute cystitis without hematuria (4) NSTEMI, initial episode of care: (5) Cardiomyopathy: QUALIFIERS: Cardiomyopathy type: unspecified Qualified Code(s): I42.9 - Cardiomyopathy, unspecified (6) Pancytopenia: PLAN: 1. Right hip fracture status post mechanical fall -ORIF of the right hip with a gamma nail on 03/15/2021 ?Cardiology is on board, she is already moderate to high risk given her current non-STEMI. ?PT/OT ? Will likely need placement 2. COVID-19/UTI due to hillman sensitive E. coli ?Mildly symptomatic, she was on 2 L nasal cannula, currently on room air. No r emdesivir secondary to her renal function ?Continue with Decadron ?Continue with Rocephin 3. Non-STEMI with cardiomyopathy ?She has no previous medical history, she does not take any medications at home however she was found to have an EF of 40% on echo ?We will hold her heparin drip secondary to surgery and anemia. We will recheck her hemoglobin in the morning 4. Acute blood loss anemia ?This is likely secondary to the heparin drip for non-STEMI ?This was discontinued, she was transfused 1 unit PRBCs and current hemoglobin is 10.4 ?We will monitor hemoglobin and transfuse as necessary DVT: SCDs Charges/Coding Visit Charges Inpatient E&M: 51135 Subs Hosp L2
--- NOTE | 2021-03-16 14:09 | PN.CARD_ITS ---
Objective Data Vital Signs: Vital Signs Temp Pulse Resp BP Pulse Ox 97.0 F L 75 16 111/60 95 03/16/21 12:29 03/16/21 12:29 03/16/21 12:29 03/16/21 12:29 03/16/21 12:29 Oxygen Flow Rate (L/min) 2 Oxygen Delivery Method Room Air Weight: 164 lb 7.437 oz Body Mass Index (BMI) 25.6 Intake & Output: Intake and Output for Last 24 Hours 03/14/21 03/15/21 03/16/21 23:59 23:59 23:59 Intake Total 899.80 / 899.80 1008 / 1008 216 / 216 Output Total 300 / 680 510 / 510 150 / 150 Balance 599.80 / 219.80 498 / 498 66 / 66 Lab / Micro Data Result Diagrams: 03/16/21 05:08 03/16/21 05:08 Labs: Laboratory Results - last 24 hr 03/14/21 13:55: Crossmatch See Detail 03/16/21 05:08: WBC 9.7, RBC 3.48 L, Hgb 10.4 L, Hct 30.3 L, MCV 87.1 D, MCH 29.9, MCHC 34.3, RDW Std Deviation 48.8 H, RDW Coeff of Jenny 15.7 H, Plt Count 142 L, MPV 11.9, Immature Gran % (Auto) 1.800 H, Neut % (Auto) 67.7, Lymph % (Auto) 15.4 L, [place] % (Auto) 14.8 H, Eos % (Auto) 0.0, Baso % (Auto) 0.3, Abso lute Neuts (auto) 6.6, Absolute Lymphs (auto) 1.49, Nucleated RBC % 0 03/16/21 05:08: Sodium 136, Potassium 5.7 H, Chloride 107, Carbon Dioxide 21.0, Anion Gap 8, BUN 58 H, Creatinine 2.27 H, Estim Creat Clear Calc 17.89, Est GFR (MDRD) Af Amer 27 L, Est GFR (MDRD) Non-Af 22 L, BUN/Creatinine Ratio 25.6 H, Glucose 145 H, Calcium 7.8 L Micro: Microbiology 03/12/21 23:20 Urine Catheter - Catheter Urine Culture - Final Escherichia coli Cardiology Labs/Tests 03/16/21 05:08: WBC 9.7, RBC 3.48 L, Hgb 10.4 L, Hct 30.3 L, MCV 87.1 D, MCH 29.9, MCHC 34.3, Plt Count 142 L, MPV 11.9, Immature Gran % (Auto) 1.800 H, Neut % (Auto) 67.7, Lymph % (Auto) 15.4 L, [place] % (Auto) 14.8 H, Eos % (Auto) 0.0, Baso % (Auto) 0.3, Absolute Neuts (auto) 6.6, Nucleated RBC % 0 03/16/21 05:08: Sodium 136, Potassium 5.7 H, Chloride 107, Carbon Dioxide 21.0, Anion Gap 8, BUN 58 H, Creatinine 2.27 H, Est GFR (MDRD) Af Amer 27 L, Est GFR (MDRD) Non-Af 22 L, BUN/Creatinine Ratio 25.6 H, Glucose 145 H, Calcium 7.8 L Rhythm: EKG: ECHO: Stress Test: Cardiac Cath: PCI: CT Surgery: Holter monitor: EPS: PPM: CXR: Chest CT Scan: Radiography Diagnostic Testing: Radiology Impression Hip X-Ray 03/15/21 12:15 IMPRESSION: Comminuted intertrochanteric fracture right hip with varus angulation Electronically Signed: Francesco Odonnell MD at 14:22 EST Tel , Service support ,
--- NOTE | 2021-03-16 14:15 | PN.CARD_ITS ---
Subjective Subjective Patient with severe dementia No symptoms reported No events from last night Objective Data Vital Signs: Vital Signs Temp Pulse Resp BP Pulse Ox 97.0 F L 75 16 111/60 95 03/16/21 12:29 03/16/21 12:29 03/16/21 12:29 03/16/21 12:29 03/16/21 12:29 Oxygen Flow Rate (L/min) 2 Oxygen Delivery Method Room Air Weight: 164 lb 7.437 oz Body Mass Index (BMI) 25.6 Intake & Output: Intake and Output for Last 24 Hours 03/14/21 03/15/21 03/16/21 23:59 23:59 23:59 Intake Total 899.80 / 899.80 1008 / 1008 216 / 216 Output Total 300 / 680 510 / 510 150 / 150 Balance 599.80 / 219.80 498 / 498 66 / 66 Lab / Micro Data Result Diagrams: 03/16/21 05:08 03/16/21 05:08 Labs: Laboratory Results - last 24 hr 03/14/21 13:55: Crossmatch See Detail 03/16/21 05:08: WBC 9.7, RBC 3.48 L, Hgb 10.4 L, Hct 30.3 L, MCV 87.1 D, MCH 29.9, MCHC 34.3, RDW Std Deviation 48.8 H, RDW Coeff of Jenny 15.7 H, Plt Count 142 L, MPV 11.9, Immature Gran % (Auto) 1.800 H, Neut % (Auto) 67.7, Lymph % (Auto) 15.4 L, [place] % (Auto) 14.8 H, Eos % (Auto) 0.0, Baso % (Auto) 0.3, Absolute Neuts (auto) 6.6, Absolute Lymphs (auto) 1.49, Nucleated RBC % 0 03/16/21 05:08: Sodium 136, Potassium 5.7 H, Chloride 107, Carbon Dioxide 21.0, Anion Gap 8, BUN 58 H, Creatinine 2.27 H, Estim Creat Clear Calc 17.89, Est GFR (MDRD) Af Amer 27 L, Est GFR (MDRD) Non-Af 22 L, BUN/Creatinine Ratio 25.6 H, Glucose 145 H, Calcium 7.8 L Micro: Microbiology 11/19/21 23:20 Urine Catheter - Catheter Urine Culture - Final Escherichia coli Cardiology Labs/Tests 03/16/21 05:08: WBC 9.7, RBC 3.48 L, Hgb 10.4 L, Hct 30.3 L, MCV 87.1 D, MCH 29.9, MCHC 34.3, Plt Count 142 L, MPV 11.9, Immature Gran % (Auto) 1.800 H, Neut % (Auto) 67.7, Lymph % (Auto) 15.4 L, [place] % (Auto) 14.8 H, Eos % (Auto) 0.0, Baso % (Auto) 0.3, Absolute Neuts (auto) 6.6, Nucleated RBC % 0 03/16/21 05:08: Sodium 136, Potassium 5.7 H, Chloride 107, Carbon Dioxide 21.0, Anion Gap 8, BUN 58 H, Creatinine 2.27 H, Est GFR (MDRD) Af Amer 27 L, Est GFR (MDRD) Non-Af 22 L, BUN/Creatinine Ratio 25.6 H, Glucose 145 H, Calcium 7.8 L Rhythm: EKG: ECHO: Stress Test: Cardiac Cath: PCI: CT Surgery: Holter monitor: EPS: PPM: CXR: Chest CT Scan: Radiography Diagnostic Testing: Radiology Impression Hip X-Ray 03/15/21 12:15 IMPRESSION: Comminuted intertrochanteric fracture right hip with varus angulation Electronically Signed: Francesco Odonnell MD at 14:22 EST Tel , Service support , Physical Exam Narrative Physical exam was not performed to minimize the risk of spread of COVID-19 Discussed in detail with the nursing staff I reviewed all current medication, current labs Assessment & Plan Assessment/Plan (1) Status post open reduction and internal fixation (ORIF) of fracture: (2) Closed intertrochanteric fracture of femur: QUALIFIERS: Encounter type: initial encounter Fracture alignment: nondisplaced Laterality: right Qualified Code(s): S72.144A - Nondisplaced intertrochanteric fracture of right femur, initial encounter for closed fracture (3) Pneumonia due to 2019 novel coronavirus: (4) Urinary tract infection: QUALIFIERS: Urinary tract infection type: acute cystitis Hematuria presence: without hematuria Qualified Code(s): N30.00 - Acute cystitis without hematuria (5) NSTEMI, initial episode of care: PLAN: 80-year-old patient with severe dementia, COVID-19 pneumonia Admitted following a fall and sustained, comminuted intratrochanteric fracture right hip Status post right ORIF Cardiac status stable hemodynamically The mild elevation of cardiac biomarkers/high sensitive troponin is secondary to type II myocardial infarction/ID secondary to demand myocardial ischemia, patient had reduced LV systolic dysfunction with ejection fraction in the range of 40-45% Also had renal insufficiency with worsening of her creatinine to 2.27 Cardiac assessment recommendation; 1. Today I reviewed and discussed the current cardiac medication which include low-dose aspirin, atorvastatin and carvedilol Patient is not a candidate for LORY inhibitor or ARB due to the renal insufficiency 2. To continue monitor on cardiac telemetry and there is no plan for invasive cardiac evaluation. 3. We will continue to monitor and follow-up with medical therapy
[2021-03-16] MEDS: Atorvastatin Calcium 40 MG Tablet PO (22:08)
[2021-03-16] MEDS: Ceftriaxone 1 GM/50 ML BAG IV (22:11)
[2021-03-17] VITALS (7 sets, daily range): BP systolic 142–154; BP diastolic 56–90; PULSE 65–87; RESP 18; TEMP 36.8–37; O2SAT 92–95
[2021-03-17] MEDS: 0.9% Normal Saline 1,000 ML 100 ML IV ×2 (06:15→18:55)
[2021-03-17] MEDS: 0.9% Saline Lock 10 ML Syringe IV (06:15)
[2021-03-17 06:55] LABS: Absolute Lymphocyte Count 1.35 X10^3/uL (0.83-4.51); Absolute Neutrophil Count 5.2 X10^3/uL (2.0-7.7); Basophil# 0.02 X10^3/uL; Basophil% 0.3 % (0-1); Hematocrit 23.7 % (37-47); Hemoglobin 7.9 g/dL (12.0-15.0); Lymphocyte # 1.35 X10^3/ul (0.83-4.51); Lymphocyte % 17.2 % (19-41); Mean Corp Hgb Conc 33.3 g/dL (32-36); Mean Corpuscular Hgb 29.5 pg (27.0-32.0); Mean Corpuscular Volume 88.4 fL (81-99); Mean Platelet Vol. 10.7 fl (6.2-12.0); Monocyte# 1.18 X10^3/uL; NRBC Flagged by Analyzer 0.3 % (0-5); Neutrophil # 5.17 X10^3/uL (2.7-7.7); Neutrophil % 65.6 % (47-70); POSITIVE MORPHOLOGY YES; Platelet Count 149 K/mm3 (150-450); RBC Distribution Width CV 15.4 % (11.6-14.6); RBC Distribution Width SD 49.3 fl (35.1-43.9); Red Blood Count 2.68 M/mm3 (4.2-5.4); White Blood Count 7.9 K/mm3 (4.4-11.0)
[2021-03-17 07:00] LABS: Differential Indicated SCAN CRITERIA MET
[2021-03-17 07:11] LABS: Atypical Lymphocyte RARE %; Differential Comment SCANNED
[2021-03-17 07:20] LABS: Anion Gap 8 (5-15); BUN 63 mg/dL (7-18); Calcium,Total 7.3 mg/dL (8.5-10.1); Chloride 111 mmol/L (98-107); EST Glomerular Filtration Rate 24 mL/min (>60); Est Glom Filt Rate - Afr Amer 29 mL/min (>60); Estimated Creatinine Clearance 19.34 ml/min; Glucose 131 mg/dL (74-106); Sodium Level 139 mmol/L (136-145)
[2021-03-17] MEDS: Rivaroxaban 2.5 MG Tablet PO ×2 (09:07→22:22)
[2021-03-17] MEDS: Carvedilol 3.125 MG TABLET PO ×2 (09:07→22:23)
[2021-03-17] MEDS: dexAMETHasone 4 MG/ML Vial 6 MG IV (09:07)
[2021-03-17] MEDS: Pantoprazole Sodium 20 MG Tablet PO ×2 (09:07→22:23)
[2021-03-17] MEDS: Aspirin 81 MG TAB.CHEW PO (09:07)
[2021-03-17] MEDS: oxyCODONE 5 MG Tablet PO ×2 (09:08→22:23)
[2021-03-17 09:18] LABS: Pathologist Review Reviewed
--- NOTE | 2021-03-17 11:05 | CASEMGMT ---
Physician did not think patient would be ready to go today, but possibly tomorrow. SW left a message for Domenica at [facility]. SW also completed a green sheet and placed on patient's chart. Plan: [facility] under skilled level of care on a convalescent stay. Radha Daley LIBRARY MONITOR ELIAZAR
--- NOTE | 2021-03-17 13:10 | TREXTCAR_ITS ---
Diet 03/16/21 02:44 Diet: Regular - General Food consistency:: Pureed Liquid Consistency:: [place]/Mildly Thick Is pt able to select menu?: No Routine Orders/Code Status Routine Lab Work: CBC and BMP Code Status: DNRCC-A Wound(s) Back of head: Wound Type: knot RIGHT HIP: Wound Type: Surgical Incision RIGHT NECK: Wound Type: Hematoma Therapies Weight Bearing: Toe-touch weight bearing Physical Therapy: Eval and Treat Occupational Therapy: Eval and Treat Problem/Diagnosis (1) Pancytopenia: Status: Acute (2) Closed intertrochanteric fracture of femur: Status: Acute (3) Pneumonia due to 2019 novel coronavirus: Status: Acute (4) Urinary tract infection: Status: Acute (5) NSTEMI, initial episode of care: Status: Acute Allergies/Procedures Done in Hospital Allergies bee venom protein (honey bee) Allergy (Verified 03/13/21 03:30) Hives Penicillins Allergy (Verified 03/13/21 03:30) Hives Procedures: - (ORIF of right hip fracture) Type of Care/Length of Stay Estimated LOS: Convalescent Care Less Than 30 days Type of Care Needed: Skilled Rehab Potential: Fair Prognosis: Fair Additional Orders/Day of Discharge Day of Discharge: 03/18/21 Dietary and Speech Recommendations Dietitian Recommendations/Changes: Resume regular diet post-op with 240ml ensure enlive TID w/ meals. Will d/c ensure enlive w/ medpass d/t COVID isolation. Discharge Plan Admission Admit Date/Time: 03/13/21 01:58 Attending Provider: Jovi Acosta Primary Care Provider: Care Physician,No Primary Consulting Providers: Tao Anderson ; Marcelo Arora Discharge Orders/Prescriptions Prescriptions: New atorvastatin 40 mg Tablet 40 mg PO QHS Qty: 0 RF: 0 carvedilol 3.125 mg Tablet 3.125 mg PO BID Qty: 0 RF: 0 aspirin 81 mg Tablet,Chewable 81 mg PO BREAKFAST Qty: 0 RF: 0 Xarelto 2.5 mg Tablet 2.5 mg PO BID Qty: 0 RF: 0 dexamethasone 2 mg tablet 6 mg PO DAILY 5 Days Qty: 15 RF: 0 Continued multivitamin Tablet 1 tab PO DAILY RF: 0 Referrals / Follow Up: Care Physician,No Primary [Primary Care Provider] - Disposition Disposition (needs filled in before D/C Order can be placed): Long-Term Facility
[2021-03-17 13:27] LABS: Hematocrit 22.9 % (37-47); Hemoglobin 7.9 g/dL (12.0-15.0)
--- NOTE | 2021-03-17 15:45 | CASEMGMT ---
JANNET called patient's son and let him know patient will not be going to [facility] today but possibly tomorrow. He thanked JANNET for the update. Plan: d/c to [facility] under skilled level of care when medically ready. Radha PEREA
--- NOTE | 2021-03-17 16:06 | PN.HOSP_ITS ---
Subjective Subjective Still has some right hip pain but is otherwise doing well, no issues overnight. She is maintaining her oxygen sats on room air Objective Data Objective Data Vital Signs: Vital Signs Temp Pulse Resp BP Pulse Ox 98.3 F 80 18 151/77 H 95 03/17/21 15:07 03/17/21 15:07 03/17/21 15:07 03/17/21 15:07 03/17/21 15:07 Oxygen Flow Rate (L/min) 2 Oxygen Delivery Method Room Air Weight: 160 lb 4.417 oz Body Mass Index (BMI) 25.6 Intake & Output: Intake and Output for Last 24 Hours 03/16/21 03/17/21 03/18/21 03:59 03:59 03:59 Intake Total 1060 / 1060 1318 / 1318 1764 / 1764 Output Total 130 / 130 275 / 275 425 / 425 Balance 930 / 930 1043 / 1043 1339 / 1339 Lab / Micro Data Result Diagrams: 03/17/21 13:09 03/17/21 06:26 Labs: Laboratory Results - last 24 hr 03/13/21 05:40: Diff Path Review Reviewed 03/17/21 06:26: Sodium 139, Potassium 5.0, Chloride 111 H, Carbon Dioxide 20.0 L , Anion Gap 8, BUN 63 H, Creatinine 2.10 H, Estim Creat Clear Calc 19.34, Est GFR (MDRD) Af Amer 29 L, Est GFR (MDRD) Non-Af 24 L, BUN/Creatinine Ratio 30.0 H , Glucose 131 H, Calcium 7.3 L 03/17/21 06:39: WBC 7.9, RBC 2.68 L, Hgb 7.9 L, Hct 23.7 L, MCV 88.4, MCH 29.5, MCHC 33.3, RDW Std Deviation 49.3 H, RDW Coeff of Jenny 15.4 H, Plt Count 149 L, MPV 10.7, Immature Gran % (Auto) 1.900 H, Neut % (Auto) 65.6, Lymph % (Auto) 17.2 L, [place] % (Auto) 15.0 H, Eos % (Auto) 0.0, Baso % (Auto) 0.3, Absolute Neuts (auto) 5.2, Absolute Lymphs (auto) 1.35, Nucleated RBC % 0.3, Differential Comment SCANNED, Atypical Lymphocytes RARE 03/17/21 13:09: Hgb 7.9 L, Hct 22.9 L Micro: Microbiology 03/12/21 23:20 Urine Catheter - Catheter Urine Culture - Final Escherichia coli 03/13/21 02:06 Urine Catheter - Catheter Legionella Antigen - Final 03/13/21 02:06 Urine Catheter - Catheter Streptococcus pneumoniae Antigen (M - Final 03/13/21 04:55 Mucosa - Nose Respiratory Panel (PCR) - Final 03/12/21 22:40 Nasal Secretion SARS-CoV-2 Antigen (Rapid) - Final SARS-CoV-2 (COVID 19) Physical Exam Const alert and no apparent distress General Appearance: cooperative HEENT normocephalic and moist oral mucous membranes Eyes PERRL, EOMs intact bilaterally and conjunctivae normal Neck supple and no JVD Resp normal respiratory effort, no retractions, no use of accessory muscles and clear to auscultation bilaterally Auscultation: Negative for crackles, rales, rhonchi or wheezes Cardio regular rate, regular rhythm, S1 normal heart sound, S2 normal heart sound and no murmurs GI soft to palpation, non-tender and non-distended; Negative for hepatosplenomegaly Extremity normal to inspection and no clubbing, cyanosis or edema Extremity Narrative: Tenderness to right hip Skin no rashes or lesions noted Skin Narrative: Dressing intact over incision Neuro no focal motor deficits and no sensory deficits noted Psych affect normal Appearance: appropriate Assessment & Plan Assessment/Plan (1) Closed intertrochanteric fracture of femur: QUALIFIERS: Encounter type: initial encounter Fracture alignment: nondisplaced Laterality: right Qualified Code(s): S72.144A - Nondisplaced intertrochanteric fracture of right femur, initial encounter for closed fracture (2) Pneumonia due to 2019 novel coronavirus: (3) Urinary tract infection: QUALIFIERS: Urinary tract infection type: acute cystitis Hematuria presence: without hematuria Qualified Code(s): N30.00 - Acute cystitis without hematuria (4) NSTEMI, initial episode of care: (5) Cardiomyopathy: QUALIFIERS: Cardiomyopathy type: unspecified Qualified Code(s): I42.9 - Cardiomyopathy, unspecified (6) Pancytopenia: PLAN: 1. Right hip fracture status post mechanical fall/CHICHI -ORIF of the right hip with a gamma nail on 03/15/2021 ?Cardiology is on board, she is already moderate to high risk given her current non-STEMI. ?PT/OT ? Will likely need placement ?Creatinine yesterday peaked at 2.27 down to 2.10 continue with IV fluids. On admission her creatinine was 1.4 2. COVID-19/UTI due to hillman sensitive E. coli ?Mildly symptomatic, she was on 2 L nasal cannula, currently on room air. No remdesivir secondary to her renal function ?Continue with Decadron ?Continue with Rocephin 3. Non-STEMI with cardiomyopathy ?She has no previous medical history, she does not take any medications at home however she was found to have an EF of 40% on echo ?Will continue with Coreg, Lipitor and aspirin ?We will hold her heparin drip secondary to surgery and anemia. We will recheck her hemoglobin in the morning 4. Acute blood loss anemia ?This is likely secondary to the heparin drip for non-STEMI ?This was discontinued, she was transfused 1 unit PRBCs and current hemoglobin is 7.9, will recheck this afternoon ?We will monitor hemoglobin and transfuse as necessary DVT: Xarelto Charges/Coding Visit Charges Inpatient E&M: 95834 Subs Hosp L2
[2021-03-17] MEDS: Atorvastatin Calcium 40 MG Tablet PO (22:22)
[2021-03-17] MEDS: MELATONIN 3 MG TABLET PO (22:23)
[2021-03-17] MEDS: Ceftriaxone 1 GM/50 ML BAG IV (22:35)
--- NOTE | 2021-03-18 00:57 | PCS.PANDOC ---
PANDEMIC DOCUMENTATION INITIATED: Date: 12/07/2020 Time: 190
[2021-03-18 03:00] VITALS: BP 154/66; PULSE 74; RESP 18; TEMP 36.9; O2SAT 93
[2021-03-18] MEDS: 0.9% Normal Saline 1,000 ML 100 ML IV (05:27)
[2021-03-18] MEDS: Ondansetron 4 MG/2 ML Vial IV (06:24)
[2021-03-18 06:29] LABS: Absolute Lymphocyte Count 1.24 X10^3/uL (0.83-4.51); Absolute Neutrophil Count 6.7 X10^3/uL (2.0-7.7); Basophil# 0.03 X10^3/uL; Basophil% 0.3 % (0-1); Lymphocyte # 1.24 X10^3/ul (0.83-4.51); Lymphocyte % 13.2 % (19-41); Mean Corp Hgb Conc 33.3 g/dL (32-36); Mean Corpuscular Hgb 30.2 pg (27.0-32.0); Mean Corpuscular Volume 90.6 fL (81-99); Mean Platelet Vol. 10.4 fl (6.2-12.0); Monocyte# 1.22 X10^3/uL; NRBC Flagged by Analyzer 0 % (0-5); Neutrophil # 6.74 X10^3/uL (2.7-7.7); Neutrophil % 71.7 % (47-70); Platelet Count 214 K/mm3 (150-450); RBC Distribution Width CV 15.4 % (11.6-14.6); RBC Distribution Width SD 49.7 fl (35.1-43.9); Red Blood Count 2.65 M/mm3 (4.2-5.4); White Blood Count 9.4 K/mm3 (4.4-11.0)
[2021-03-18 07:00] VITALS: PULSE 75
[2021-03-18 07:23] LABS: Anion Gap 8 (5-15); BUN 52 mg/dL (7-18); BUN/Creat Ratio 33.1 RATIO (10-20); Calcium,Total 7.7 mg/dL (8.5-10.1); Chloride 113 mmol/L (98-107); Creatinine, Serum 1.57 mg/dL (0.55-1.02); EST Glomerular Filtration Rate 34 mL/min (>60); Est Glom Filt Rate - Afr Amer 41 mL/min (>60); Estimated Creatinine Clearance 25.86 ml/min; Glucose 103 mg/dL (74-106); Potassium 4.6 mmol/L (3.5-5.1); Sodium Level 140 mmol/L (136-145)
[2021-03-18 09:00] VITALS: BP 163/88; PULSE 86; RESP 18; TEMP 36.5; O2SAT 94
[2021-03-18] MEDS: Pantoprazole Sodium 20 MG Tablet PO (09:19)
[2021-03-18] MEDS: Carvedilol 3.125 MG TABLET PO (09:19)
[2021-03-18] MEDS: Rivaroxaban 2.5 MG Tablet PO (09:19)
[2021-03-18] MEDS: dexAMETHasone 4 MG/ML Vial 6 MG IV (09:19)
[2021-03-18] MEDS: Aspirin 81 MG TAB.CHEW PO (09:19)
--- NOTE | 2021-03-18 12:34 | PCM.DC.SUM ---
Providers Date of Admission: 03/13/21 Primary Care Physician: Patsy Primary Care Phys Consultations 03/13/21 03:13 Consult: Orthopedics Routine Consulting Provider: Tao Anderson Reason for Consult: R hip fracture, fall, also has COVID PNA, Hypoxia, UTI EMERGENT Consult: No Notified: Yes Date Notified: 03/13/21 Time Notified: 02:01 Method of Notification: called and discussed case 03/13/21 08:28 Consult: Cardiology Routine Consulting Provider: Marcelo Arora Reason for Consult: elevated troponin. cardiac clearance. EMERGENT Consult: No MD Notified: Yes Date Notified: 03/13/21 Time Notified: 08:29 Method of Notification: Text Reason For Visit: COVID PNA, HYPOXIA, UTI, R HIP FRACTURE Diagnosis Discharge Diagnosis (1) Pancytopenia: Status: Acute Code(s): D61.818 - Other pancytopenia (2) Closed intertrochanteric fracture of femur: Status: Acute Code(s): S72.143A - Displaced intertrochanteric fracture of unspecified femur, initial encounter for closed fracture Qualifiers: Encounter type: initial encounter Fracture alignment: nondisplaced Laterality: right Qualified Code(s): S72.144A - Nondisplaced intertrochanteric fracture of right femur, initial encounter for closed fracture (3) Pneumonia due to 2019 novel coronavirus: Status: Acute Code(s): U07.1 - COVID-19; J12.82 - Pneumonia due to coronavirus disease 2019 (4) Urinary tract infection: Status: Acute Code(s): N39.0 - Urinary tract infection, site not specified Qualifiers: Urinary tract infection type: acute cystitis Hematuria presence: without hematuria Qualified Code(s): N30.00 - Acute cystitis without hematuria (5) NSTEMI, initial episode of care: Status: Acute Code(s): I21.4 - Non-ST elevation (NSTEMI) myocardial infarction Medications at Discharge Home Medications multivitamin 1 tab PO DAILY 03/12/21 aspirin 81 mg PO BREAKFAST #0 tab 03/17/21 atorvastatin 40 mg PO QHS #0 tab 03/17/21 carvedilol 3.125 mg PO BID #0 tab 03/17/21 rivaroxaban [Xarelto] 2.5 mg PO BID #0 tab 03/17/21 dexamethasone 6 mg PO DAILY 5 Days #15 tab 03/18/21 Hospital Course Operations - (Right hip) Procedures 2-D Echocardiogram Summary of Care Provided Minutes Spent on Discharge: 35 Hospital Course: Per HPI: The patient is an 80 y/o F w/ PMHx: Former Tobacco use, Dementia unclear type with unclear behavioral disturbance history who presents to the [facility] ED on 03/13/21 with history of unfortunate mechanical fall onto her right hip with significant discomfort following, shortening and abnormal rotation with no specific loss of consciousness prompting ED evaluation. Patient lives with her son and per discussion was getting up approximately 9 PM to turn off the TV and the light to get ready for bed when she lost her balance and fell at that time. Patient reported that her mental status was stable and unchanged from her baseline with notable underlying significant dementia. Patient has not been vaccinated against COVID. Patient son did state that unfortunately his son recently tested positive for Covid and that both him and his mother had Covid testing on day of ED presentation but have yet to have these results and that they both been fatigued with upper respiratory type symptoms over the last 1 to 2 days. Work-up in the ED included T 98.1, heart rate 80, BP 159/83, respiratory rate 18, 96% on room air; however, following morphine dropped to 88% on RA-->improved with NC but upon hospitalist evaluation was 91% on room air and this was a decent timeline out from narcotic therapies, CBC with WBC 2.1, hemoglobin 9.8, platelet 89 with increased immature granulocytes although absolute neutrophils 1.1 with concurrent lymphopenia, BMP with chloride 108, BUN/creatinine 30/1.54, glucose 123, coags with PTT 44.6 otherwise unremarkable, urinalysis with specific gravity elevation 1.020, occult blood 250, positive nitrite, leukocyte esterase 500, urine RBC 5-10, urine WBCs greater than 100 with 4+ urine bacteria, urine culture pending per ED, rapid Covid antigen positive, plain film of the hip and pelvis with R comminuted intertrochanteric fracture, chest x-ray w/ hazy bilateral airspace disease of uncertain chronicity, suspicious for pneumonia in the appropriate clinical setting, CT brain with chronic involutional and white matter changes with no acute intracranial findings. In the ED patient ministered normal saline, Rocephin, fentanyl, morphine and Zofran therapy. Brothers catheter placed in the ED. Hospital Course: 1. Right hip fracture status post mechanical fall/CHICHI -ORIF of the right hip with a gamma nail on 03/15/2021 ?Cardiology is on board, she is already moderate to high risk given her current non-STEMI. ?PT/OT ? Will likely need placement ?Creatinine yesterday peaked at 2.27 down to 2.10 continue with IV fluids. On admission her creatinine was 1.4 03/18/2021: Her renal function has essentially resolved, she is down to 1.57 today. She is also completed antibiotic treatment for her UTI. She is breathing well not requiring any oxygen. She was evaluated by cardiology and they recommended medical management for her non-STEMI given the severity of her dementia as well as for Covid. I do recommend outpatient follow-up with her primary care doctor and possible further cardiac evaluation. We'll plan for discharge today to SNF for rehab. I do recommend following CBCs and BMP for resolution of her CHICHI as well as stability of her hemoglobin. Her hemoglobin on the day of discharge is 8.0. She will be on Xarelto 2.5 mg p.o.twice daily as prophylaxis from orthopedic surgery for 14 days. 2. COVID-19/UTI due to hillman sensitive E. coli ?Mildly symptomatic, she was on 2 L nasal cannula, currently on room air. No remdesivir secondary to her renal function ?Continue with Decadron 5 more days on discharge ?Completed 5 days of Rocephin 3. Non-STEMI with cardiomyopathy ?She has no previous medical history, she does not take any medications at home however she was found to have an EF of 40% on echo ?Will continue with Coreg, Lipitor and aspirin ?We will hold her heparin drip secondary to surgery and anemia. We will recheck her hemoglobin in the morning 4. Acute blood loss anemia ?This is likely secondary to the heparin drip for non-STEMI ?This was discontinued, she was transfused 1 unit PRBCs and current hemoglobin is 8.0 on discharge ?We will monitor hemoglobin and transfuse as necessary Physical Exam Const alert and no apparent distress General Appearance: cooperative HEENT normocephalic and moist oral mucous membranes Eyes PERRL, EOMs intact bilaterally and conjunctivae normal Neck no lymphadenopathy, supple and no JVD Resp normal respiratory effort, no retractions, no use of accessory muscles and clear to auscultation bilaterally Auscultation: Negative for crackles, rales, rhonchi or wheezes Cardio regular rate, regular rhythm, S1 normal heart sound, S2 normal heart sound and no murmurs GI normal to inspection, nondistended, normoactive bowel sounds, soft to palpation, non-tender and non-distended; Negative for hepatosplenomegaly Extremity normal to inspection and no clubbing, cyanosis or edema Extremity Narrative: Tenderness to right hip Skin no rashes or lesions noted Skin Narrative: Dressing intact over incision Neuro no focal motor deficits and no sensory deficits noted Sensorium / Orientation: awake and alert Psych affect normal Appearance: appropriate Weight / BMI Weight Weight: 160 lb 11.472 oz Body Mass Index (BMI) 25.6 ABG / Lab / Microbiology Data Result Diagrams: 03/18/21 05:36 03/18/21 05:36 Laboratory: Laboratory Results - last 24 hr 03/17/21 13:09: Hgb 7.9 L, Hct 22.9 L 03/18/21 05:36: WBC 9.4, RBC 2.65 L, Hgb 8.0 L, Hct 24.0 L, MCV 90.6, MCH 30.2, MCHC 33.3, RDW Std Deviation 49.7 H, RDW Coeff of Jenny 15.4 H, Plt Count 214, MPV 10.4, Immature Gran % (Auto) 1.800 H, Neut % (Auto) 71.7 H, Lymph % (Auto) 13.2 L, Warren % (Auto) 13.0 H, Eos % (Auto) 0.0, Baso % (Auto) 0.3, Absolute Neuts (auto) 6.7, Absolute Lymphs (auto) 1.24, Nucleated RBC % 0 03/18/21 05:36: Sodium 140, Potassium 4.6, Chloride 113 H, Carbon Dioxide 19.0 L, Anion Gap 8, BUN 52 H, Creatinine 1.57 H, Estim Creat Clear Calc 25.86, Est GFR (MDRD) Af Amer 41 L, Est GFR (MDRD) Non-Af 34 L, BUN/Creatinine Ratio 33.1 H, Glucose 103, Calcium 7.7 L Microbiology: Microbiology 03/12/21 23:20 Urine Catheter - Catheter Urine Culture - Final Escherichia coli 03/13/21 02:06 Urine Catheter - Catheter Legionella Antigen - Final 03/13/21 02:06 Urine Catheter - Catheter Streptococcus pneumoniae Antigen (M - Final 03/13/21 04:55 Mucosa - Nose Respiratory Panel (PCR) - Final 03/12/21 22:40 Nasal Secretion SARS-CoV-2 Antigen (Rapid) - Final SARS-CoV-2 (COVID 19) Meaningful Use Info Meaningful Use Diagnoses (Choose all that apply): None applicable Discharge Plan Admission Admit Date/Time: 03/13/21 01:58 Attending Provider: Jovi Acosta Primary Care Provider: Care Physician,No Primary Consulting Providers: Tao Anderson ; Marcelo Arora Discharge Orders/Prescriptions Prescriptions: New atorvastatin 40 mg Tablet 40 mg PO QHS Qty: 0 RF: 0 carvedilol 3.125 mg Tablet 3.125 mg PO BID Qty: 0 RF: 0 aspirin 81 mg Tablet,Chewable 81 mg PO BREAKFAST Qty: 0 RF: 0 Xarelto 2.5 mg Tablet 2.5 mg PO BID Qty: 0 RF: 0 dexamethasone 2 mg tablet 6 mg PO DAILY 5 Days Qty: 15 RF: 0 Continued multivitamin Tablet 1 tab PO DAILY RF: 0 Referrals / Follow Up: Care Physician,No Primary [Primary Care Provider] - Disposition Disposition (needs filled in before D/C Order can be placed): Assisted Facility Charges/Coding Visit Charges Inpatient E&M: 23562 Disch Hosp
== END 2021-03-18 14:40 | disposition skilled nursing facility (03) | DRG 981 ==
LOC: ED 03-13 01:44 → PCU 03-13 02:11
PROVIDERS: Anesthesiology; Orthopaedic Surgery; Admitting Provider Family Medicine; Emergency Provider Emergency Medicine; Visit Provider Family Medicine
PROC: 0QS606Z Reposition Right Upper Femur with Intramedullary Internal Fixation Device, Open Approach (ICD-10-PCS; CPT 27245; principal; 2021-03-15 12:00)
DX: U07.1 COVID-19 (principal); S72.141A Displaced intertrochanteric fracture of right femur, initial encounter for closed fracture; J12.82 Pneumonia due to coronavirus disease 2019; I21.A1 Myocardial infarction type 2; N17.9 Acute kidney failure, unspecified; D62 Acute posthemorrhagic anemia; N30.00 Acute cystitis without hematuria; D61.818 Other pancytopenia; F03.90 Unspecified dementia, unspecified severity, without behavioral disturbance, psychotic disturbance, mood disturbance, and anxiety; R09.02 Hypoxemia; R03.0 Elevated blood-pressure reading, without diagnosis of hypertension; N18.30 Chronic kidney disease, stage 3 unspecified; D63.1 Anemia in chronic kidney disease; Z66 Do not resuscitate; I25.5 Ischemic cardiomyopathy; B96.20 Unspecified Escherichia coli [E. coli] as the cause of diseases classified elsewhere; D64.89 Other specified anemias; T45.515A Adverse effect of anticoagulants, initial encounter; W18.30XA Fall on same level, unspecified, initial encounter; Y93.89 Activity, other specified; Y92.003 Bedroom of unspecified non-institutional (private) residence as the place of occurrence of the external cause; Y99.8 Other external cause status; Z87.891 Personal history of nicotine dependence
CPT/HCPCS: 36415; 51702; 70450; 71045; 73502; 76000; 80048; 80053; 80076; 81001; 82728; 82962; 83615; 83735; 83880; 84145; 84439; 84443; 84484; 85014; 85018; 85025; 85379; 85610; 85730; 86140; 86850; 86900; 86901; 86920; 86922; 87077; 87086; 87088; 87186; 87426; 87449; 87633; 92526; 92610; 93005; 93306; 93970; 97110; 97162; 97166; 97530; 99251; 99285; C1713; C1776; J7030; J7040; J7120; P9016; A4216; G0463; J2405

== ENCOUNTER 2021-05-30 10:25 | Emergency (ER) | payer MEDICARE, MEDICAID, SELFPAY ==
[2021-05-30 10:26] VITALS: BP 147/66; PULSE 92; RESP 16; TEMP 37; O2SAT 98; BMI 28.5
[2021-05-30 10:34] VITALS: O2SAT 98
--- NOTE | 2021-05-30 10:50 | CT_ITS ---
STUDY: CT CERVICAL SPINE WITHOUT CONTRAST REASON FOR EXAM: Female, 80 years old. fall/trauma RADIATION DOSAGE (If Supplied By Facility): CTDIvol = ( 19.36 ) mGy, DLP = ( 332.32 ) mGycm TECHNIQUE: The patient was scanned in a multi detector CT scanner. High resolution transaxial imaging was performed. Sagittal and coronal images were reconstructed. Individualized dose optimization techniques were used for this CT. COMPARISON: None FINDINGS: There is straightening of the normal cervical lordosis. There are no demonstrated fractures of the cervical spine. There is multilevel endplate spondylosis of the vertebrae. There is multi-level degenerative disc disease with multi-level disc space narrowing. At T1/T2: There is a disc osteophyte complex and ligamentous ossification resulting in severe central canal stenosis. There is incompletely visualized spiculated 2 cm right lung apex opacity. CT/Spine Cervical without Contras IMPRESSION: No demonstrated fractures. T1/T2: Severe central canal stenosis. If there is clinical suspicion for spinal cord injury, further evaluation with MRI is recommended. 2 cm spiculated right lung opacity. Malignant disease is not excluded. Comparison with prior examinations if available or further evaluation with dedicated CT of the chest is recommended. Electronically Signed: Grace Logan MD at 11:40 EST ,
--- NOTE | 2021-05-30 10:50 | CT_ITS ---
STUDY: CT BRAIN WITHOUT CONTRAST REASON FOR EXAM: Female, 80 years old. Fall, trauma RADIATION DOSAGE (If Supplied By Facility): CTDIvol = ( 44.99 ) mGy, DLP = ( 829.85 ) mGycm TECHNIQUE: Transaxial CT imaging of the brain was performed without administration of intravenous contrast material. Individualized dose optimization techniques were used for this CT. COMPARISON: No relevant priors. FINDINGS: Normal soft tissue structures. Normal calvarium. There is mild cerebral atrophy with widening of the extra-axial spaces and ventricular dilatation. There are areas of decreased attenuation within the white matter tracts of the supratentorial brain, consistent with microvascular disease changes. Normal basal ganglia and thalami. Normal brainstem. Normal cerebellum. There is no intracranial hemorrhage. There are no findings of an acute ischemic infarction. There is a partial opacification of the right maxillary sinus and mild ethmoid sinus mucosal thickening. As partially visualized degenerative change at the level of the C1-C2 level. CT/Brain/Head without Contrast IMPRESSION: Chronic involutional changes of the brain. No visualized acute hemorrhage infarct or edema. Sinusitis. Electronically Signed: Cecile Pittman MD at 11:31 EST Reading Location ID and State: [facility] / [place] Tel , Service support ,
--- NOTE | 2021-05-30 10:52 | EDS_ITS ---
HPI History of Present Illness Chief Complaint: Fall Detail of Chief Complaint: Fall that occurred this morning at half-way Informant: patient Narrative Narrative: Patient presents to the emergency department complaint of a fall that occurred this morning. Patient states that she was sitting on the edge of the bed and reached for a glass of water when she lost her balance and fell. She does not think she lost consciousness and is not sure if she hit her head. She complains of pain in her knees and hips. Complains of some neck pain. She denies abdomen or chest pain. Patient apparently is on Xarelto. [facility] Medical History Anemia CKD (chronic kidney disease) Former tobacco use Severe dementia Home Medications aspirin 81 mg PO BREAKFAST #0 tab 03/17/21 [Rx Last Taken Unknown] atorvastatin 40 mg PO QHS #0 tab 03/17/21 [Rx Last Taken Unknown] carvedilol 3.125 mg PO BID #0 tab 03/17/21 [Rx Last Taken Unknown] rivaroxaban [Xarelto] 2.5 mg PO BID #0 tab 03/17/21 [Rx Last Taken Unknown] acetaminophen 650 mg PO Q4H PRN 05/30/21 [History Last Taken Unknown] melatonin 3 mg PO QHS 05/30/21 [History Last Taken Unknown] ondansetron 4 mg PO Q8H PRN 05/30/21 [History Last Taken Unknown] pantoprazole 40 mg PO DAILY 05/30/21 [History Last Taken Unknown] tramadol 50 mg PO DAILY 05/30/21 [History Last Taken Unknown] Allergy/AdvReac Type Severity Reaction Status Date / Time bee venom protein (honey bee) Allergy Hives Verified 05/30/21 10:30 Penicillins Allergy Hives Verified 05/30/21 10:30 Family History unable to obtain Surgical History Hx of cholecystectomy Hx of hysterectomy S/P bilateral foot surgery Social History household members: other details: Patient moved in with her son ~ 15 years prior following her . Smoking Status: Former smoker how long ago did patient quit smoking: Smoked x 30 years, quit ~ 15 years ago. alcohol intake: never substance use type: does not use ROS ROS ED Constitutional Constitutional ED: Reports systems reviewed and no addt'l complaints, except as documented; Denies body ache(s), change in weight or chills Eyes Eyes: Denies acute decrease in peripheral vision, change in vision, double vision or loss of vision ENT ENT ED: Reports none; Denies ear pain, lip swelling, loss taste/smell, neck pain, otalgia or sore throat Cardiovascular Cardiovascular: Reports none; Denies abdominal pain, chest pain with activity, leg edema, lightheadedness, palpitations, rapid heart rate or syncope Respiratory/Chest Respiratory/Chest: Reports none; Denies change in mental status, dry cough, dyspnea, hemoptysis, shortness of breath at rest or shortness of breath with exertion Gastrointestinal Gastrointestinal: Reports none; Denies abdominal pain, change in stool character, diarrhea, hematemesis, hematochezia, melena, rectal bleeding or vomiting Genitourinary Genitourinary ED: Reports none; Denies abdominal discomfort, anuria, dysuria, genital pain or polyuria Musculoskeletal Musculoskeletal: Reports none, neck pain and other Details: Bilateral knee and hip pain ; Denies arthralgias, back pain, difficulty walking, extremity pain, muscle weakness or myalgias Integumentary Reports none; Denies abscess or rash Neurologic Neurologic: Reports none and headache(s); Denies abnormal gait, confusion, focal weakness, frequent falls, loss of vision, numbness, paresthesias, radicular pain, vertigo or weakness Psychiatric Psychiatric: Reports systems reviewed and no addt'l complaints, except as documented and none; Denies behavioral changes, confusion, difficulty concentrating, hallucinations, suicidal ideation, tactile hallucinations or visual hallucinations Endocrine Endocrinology: Denies none, cold intolerance, excessive sweating, fatigue or heat intolerance Hematologic/Lymphatic Hematologic/Lymphatic: Reports none; Denies anemia, easy bleeding or easy brui sing Allergic/Immunologic Allergic/Immunologic ED: Denies as per HPI, none, lip swelling, mouth swelling, throat swelling, tongue swelling or hives EXAM Physical Exam Const Vital Signs: 05/30/21 10:26 05/30/21 10:34 05/30/21 11:56 Temperature 98.6 F Temperature Source Oral Pulse Rate 92 93 Respiratory Rate 16 Respiratory Effort Normal Blood Pressure 147/66 H 141/66 H Blood Pressure Mean 93 91 Pulse Ox 98 98 Oxygen Delivery Method Room Air Room Air 05/30/21 13:00 Temperature Temperature Source Pulse Rate 91 Respiratory Rate Respiratory Effort Blood Pressure 136/66 H Blood Pressure Mean 89 Pulse Ox Oxygen Delivery Method Positive well nourished and well developed General Appearance ED: well developed and NAD HEENT Reports TM's clear and moist mucous membranes HEENT Narrative: No external evidence of trauma to her head. normocephalic and atraumatic; Negative for trauma or tenderness Tympanic Membrane ED: Yes TM's clear Eyes PERRL and EOMs intact bilaterally General Eye ED: Negative for pale conjunctiva or scleral icterus Neck no lymphadenopathy, supple and no JVD Neck Narrative: Mild diffuse C-spine tenderness on exam. No bony step-offs. Patient does have a c-collar in place. General: tenderness Chest Wall inspection of chest normal and palpation of chest normal Chest: Negative for tenderness Resp normal respiratory effort and clear to auscultation bilaterally Effort and Inspection: Negative for respiratory distress or pain with movement Auscultation: Negative for rhonchi, wheezes or diminished lung sounds Cardio regular rate, regular rhythm, S1 normal heart sound, S2 normal heart sound and no murmurs Peripheral Pulses: pulses 2+ throughout GI normal to inspection, nondistended, normoactive bowel sounds, soft to palpation, non-tender, non-distended and no masses Back/Spine no CVA tenderness and no thoracic nor lumbar tenderness Extremity Extremity Narrative: No external trauma noted to the knees however she has diffuse tenderness to palpation bilaterally. Limited range of motion secondary to pain. Patient does have heel protectors on both feet/heels. Patient has diffuse tenderness palpation over both hips. No shortening or rotational deformity noted. General Extremety ED: Negative for edema General Extremity: Negative for edema Neuro oriented x3, CN's II-XII intact bilaterally, no sensory deficits noted and gait normal Sensorium / Orientation: awake, alert, oriented to person, oriented to place and oriented to time Motor Exam: strength 5/5 throughout and strength abnormal Psych mental status grossly normal Skin no rashes or lesions noted and no wounds MDM MDM MDM Narrative Medical decision making narrative: Patient presented for mechanical fall. Patient does not ambulate. She slid out of bed while reaching for some water. CT of her head and neck were unremarkable however on the CT of the neck they saw a right upper lobe suspected mass and recommended CT chest to evaluate further. On repeat exam of the CT chest patient had small bilateral effusions and area of peripheral fibrotic change and or scarring focus of indeterminate density in the right apex which may represent a focus of scarring possible inflammatory change or potentially a nodule. At this point I feel patient can be discharged back to the half-way. Patient to follow-up with her primary care physician in 3 to 5 days. Radiography Diagnostic Testing: Clinical Impression(s) from Imaging Studies Brain CT 05/30/21 10:50 IMPRESSION: Chronic involutional changes of the brain. No visualized acute hemorrhage infarct or edema. Sinusitis. Electronically Signed: Cecile Pittman MD at 11:31 EST , Cervical Spine CT 05/30/21 10:50 IMPRESSION: No demonstrated fractures. T1/T2: Severe central canal stenosis. If there is clinical suspicion for spinal cord injury, further evaluation with MRI is recommended. 2 cm spiculated right lung opacity. Malignant disease is not excluded. Comparison with prior examinations if available or further evaluation with dedicated CT of the chest is recommended. Electronically Signed: Grace Logan MD at 11:40 EST , Hip/Pelvis X-Ray 05/30/21 11:00 IMPRESSION: March 15, 2021 history of right intra trochanteric fracture. Healing fracture status post open reduction internal fixation right hip is most likely. 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 No visualized definitive acute fracture. Electronically Signed: Cecile Pittman MD at 12:34 EST , Knee X-Ray 05/30/21 11:00 IMPRESSION: Mild degenerative change. No visualized acute fracture. Trace joint effusion. Electronically Signed: Ceclie Pittman MD at 11:33 EST , Knee X-Ray 05/30/21 11:00 IMPRESSION: Degenerative change. Minimal joint effusion. No visualized acute fracture. Electronically Signed: Cecile Pittman MD at 11:32 EST , Chest CT 05/30/21 12:02 IMPRESSION: Small bilateral effusions atelectasis. Areas of peripheral fibrotic change and/or scarring. Focus of indeterminate density in the right apex which may represent a focus of scarring possible inflammatory change or potentially a nodule, further evaluation is warranted which could include the possibility of a comparison to a prior CT scan of the chest further imaging if available. Could consider follow-up PET scan if appropriate. Electronically Signed: Cecile Pittman MD at 13:22 EST , 4 view x-rays of bilateral knees obtained interpreted by myself as no acute fractures and only degenerative changes. Radiology in agreement. Patient had x-rays of bilateral hips and pelvis which did show prior open reduction internal fixation of right hip however no other fractures noted on my interpretation. Radiology in agreement. Discharge Plan Triage Chief Complaint: Fall ED Provider: Roman Savage Dx/Rx/DC Orders Clinical Impression: Fall, Head injury, Acute bilateral knee pain, Acute hip pain, bilateral Instructions: ED Contusion, Lower Extremity, ED Mechanical Fall, ED Head Injury (Adult) Prescriptions: No Action atorvastatin 40 mg Tablet 40 mg PO QHS Qty: 0 RF: 0 carvedilol 3.125 mg Tablet 3.125 mg PO BID Qty: 0 RF: 0 aspirin 81 mg Tablet,Chewable 81 mg PO BREAKFAST Qty: 0 RF: 0 Xarelto 2.5 mg Tablet 2.5 mg PO BID Qty: 0 RF: 0 tramadol 50 mg Tablet 50 mg PO DAILY RF: 0 pantoprazole 40 mg Tablet,Delayed Release (Dr/Ec) 40 mg PO DAILY RF: 0 ondansetron 4 mg Tablet,Disintegrating 4 mg PO Q8H PRN (Reason: zofran) RF: 0 acetaminophen 325 mg Capsule 650 mg PO Q4H PRN (Reason: pain/fever) RF: 0 melatonin 3 mg Capsule 3 mg PO QHS RF: 0 Primary Care Provider: Care Physician,No Primary Referrals: Care Physician,No Primary [Primary Care Provider] - Activity Restrictions/Additional Instructions: See your primary care physician in 3 to 5 days Disposition Disposition: [facility] Facility
--- NOTE | 2021-05-30 11:00 | RAD_ITS ---
STUDY: X-RAY - PELVIS AND BILATERAL HIPS REASON FOR EXAM: Female, 80 years old. Fall TECHNIQUE: AP view of the pelvis.? 2 views of the right hip, and 2 views of the left hip were obtained. COMPARISON: Prior comparison studies from March 15, 2021 of the right hip were requested by not available for review at this time. FINDINGS: There is moderate stool in the colon. Normal visualized soft tissue structures. There is visualized degenerative change in the lower lumbar spine. There is narrowing with cortical sclerosis and osteophyte formation of the sacroiliac joint consistent with degenerative osteoarthritic changes. Normal bilateral superior and inferior pubic rami. Normal pubic symphysis. Normal bilateral ischial tuberosities. There is a cortical screw transfixing the right proximal femur with age-indeterminate fracture line demonstrated within the right low femoral neck. Normal visualized left femoral head. Normal left acetabulum. There is moderate articular joint space narrowing of the left hip. RAD/Hips B/L min 2 views w/ Pelvis IMPRESSION: March 15, 2021 history of right intra trochanteric fracture. Healing fracture status post open reduction internal fixation right hip is most likely. 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 No visualized definitive acute fracture. Electronically Signed: Cecile Pittman MD at 12:34 EST Reading Location ID and State: [facility] / [place] Tel , Service support ,
--- NOTE | 2021-05-30 11:00 | RAD_ITS ---
STUDY: X-RAY - LEFT KNEE REASON FOR EXAM: Female, 80 years old. FALL TECHNIQUE: 2 view(s) of the knee. A flex view of the knee is not provided. COMPARISON: None. FINDINGS: Normal visualized distal femur. Normal visualized proximal tibia and fibula. Normal proximal tibiofibular articulation. There is mild degenerative arthrosis of the medial femorotibial compartment. Normal lateral femorotibial compartment. There is mild degenerative arthrosis of the patellofemoral articulation. There is a soft tissue prominence in the suprapatellar region suggesting a minimal volume joint effusion. There is enthesopathy at the quadriceps insertion. RAD/Knee 1 or 2 Views IMPRESSION: Degenerative change. Minimal joint effusion. No visualized acute fracture. Electronically Signed: Cecile Pittman MD at 11:32 EST Reading Location ID and State: [facility] / [place] Tel , Service support ,
--- NOTE | 2021-05-30 11:00 | RAD_ITS ---
STUDY: X-RAY - RIGHT KNEE REASON FOR EXAM: Female, 80 years old. Fall TECHNIQUE: 2 view(s) of the knee. COMPARISON: None. FINDINGS: There is demineralization of the visualized distal femur. There is demineralization of the tibia and fibula. Normal proximal tibiofibular articulation. There is mild degenerative arthrosis of the medial femorotibial compartment. There is mild degenerative arthrosis of the lateral femorotibial compartment. There is mild degenerative arthrosis of the patellofemoral articulation. There is a trace joint effusion. There are atherosclerotic calcifications. RAD/Knee 1 or 2 Views IMPRESSION: Mild degenerative change. No visualized acute fracture. Trace joint effusion. Electronically Signed: Cecile Pittman MD at 11:33 EST Reading Location ID and State: [facility] / [place] Tel , Service support ,
[2021-05-30 11:56] VITALS: BP 141/66; PULSE 93
--- NOTE | 2021-05-30 12:02 | CT_ITS ---
STUDY: CT CHEST WITHOUT CONTRAST REASON FOR EXAM: Female, 80 years old. Lung mass RADIATION DOSAGE (If Supplied By Facility): CTDIvol = ( 13.70 ) mGy, DLP = ( 458.89 ) mGycm TECHNIQUE: Transaxial imaging was performed without the administration of intravenous contrast material. Multiplanar coronal and sagittal images were reformatted. Individualized dose optimization techniques were used for this CT. COMPARISON: None available chest x-rays. There is a CT scan of the cervical spine performed May 30, 2021 FINDINGS: There is visualization of a focus of possible scarring inflammatory change or possible nodule measuring 1.2 x 0.8 cm within the right apex with associated right pleural thickening. There are small bilateral effusions. There is peripheral fibrotic change. There is mild cardiac enlargement or coronary calcifications. There are nonspecific subcentimeter mediastinal lymph nodes. Normal hilar regions. Normal unenhanced pulmonary arteries. There is atherosclerotic calcification of the aortic arch with tortuosity and elongation of the aortic arch and descending thoracic aorta. There is kyphosis multilevel degenerative change of the thoracic spine. There is no demonstrated abnormality of the visualized upper abdomen. CT/Chest without Contrast IMPRESSION: Small bilateral effusions atelectasis. Areas of peripheral fibrotic change and/or scarring. Focus of indeterminate density in the right apex which may represent a focus of scarring possible inflammatory change or potentially a nodule, further evaluation is warranted which could include the possibility of a comparison to a prior CT scan of the chest further imaging if available. Could consider follow-up PET scan if appropriate. Electronically Signed: Cecile Pittman MD at 13:22 EST ,
[2021-05-30 13:00] VITALS: BP 136/66; PULSE 91
[2021-05-30 13:27] VITALS: BP 136/56; PULSE 90
--- NOTE | 2021-05-30 13:36 | NURSING ---
CALLED [facility], ETA IS 30 MIIN
--- NOTE | 2021-05-30 13:55 | ED.RN ---
[facility]
== END 2021-05-30 14:17 ==
PROVIDERS: Emergency Provider Emergency Medicine; PCP Family Medicine; Visit Provider Emergency Medicine
DX: S09.90XA Unspecified injury of head, initial encounter (principal); F03.90 Unspecified dementia, unspecified severity, without behavioral disturbance, psychotic disturbance, mood disturbance, and anxiety; W06.XXXA Fall from bed, initial encounter; Y92.122 Bedroom in nursing home as the place of occurrence of the external cause; M25.562 Pain in left knee; M25.561 Pain in right knee; N18.9 Chronic kidney disease, unspecified; M25.552 Pain in left hip; M25.551 Pain in right hip; Z79.82 Long term (current) use of aspirin; Z79.01 Long term (current) use of anticoagulants; Z79.899 Other long term (current) drug therapy; Z87.891 Personal history of nicotine dependence
CPT/HCPCS: 70450; 71250; 72125; 73521; 73560; 99284; A4216